=== PATIENT | female | born 1930 | race Caucasian/White ===

== ENCOUNTER 2016-10-24 11:58 | Inpatient (IN) | payer MEDICARE, OTHER ==
[~2016-10-24] VITALS: Ht 152.4 cm; Wt 45.4 kg
[2016-10-24] MEDS ORDERED: Solu-MEDROL 125mg Inj IVP ONE (12:00)
[2016-10-24] MEDS ORDERED: Terbutaline 1mg/ml Inj SUBQ ONE (12:00)
[2016-10-24] MEDS ORDERED: Azithromycin 500 MG in NS 275 ML IV ONE (12:00)
[2016-10-24] MEDS ORDERED: Ipratropium 0.02% Inh Soln 2.5ml UD ONE (12:01)
[2016-10-24] MEDS ORDERED: Albuterol ud Inhalation ONE (12:01)
--- NOTE | 2016-10-24 12:02 | Emergency Room Report ---
History of Present Illness General Chief Complaint: Dyspnea/Respdistress Source: Patient, Medical Record, EMS Present Illness HPI 86 YOF BIBEMS from convalescent home for "SOB for 2 weeks." Denies fever/chills , cough. Patient very hard of hearing, difficult for her to answer HPI even when we raise our voices - hearing aid in left ear. Patient endorses "smoking 50 years ago." Not sure if she has COPD/asthma or CHF. Review of charts show an order for Ventolin PRN. Has known breast cancer and OA but SNF paperwork missing "medical problems 1-6." Allergies: Uncoded Allergies: ERYTHROMYCIN (Allergy, Unknown, 10/24/16) Patient History Past Medical History: old chart reviewed, unable to obtain Past Surgical History: unable to obtain Social History: Denies: alcohol use, drug use, smoking Last Menstrual Period: na Now: No Immunizations: UTD Reviewed Nursing Documentation: PMH: Agreed, PSxH: Agreed Review of Systems All Other Systems: negative except mentioned in HPI Physical Exam Vital Signs Date Time Temp Pulse Resp B/P Pulse Ox O2 Delivery O2 Flow Rate FiO2 10/24/16 11:49 97.2 102 32 164/115 90 Room Air Sp02 EP Interpretation: reviewed, normal General Appearance: normal inspection, well appearing, no apparent distress, alert, GCS 15, non-toxic, mild distress Head: normocephalic, atraumatic Eyes: bilateral eye EOMI, bilateral eye PERRL ENT: normal ENT inspection, hearing grossly normal, normal pharynx, no angioedema, normal voice Neck: normal inspection, full range of motion, supple, no meningismus, no bony tend Respiratory: normal inspection, lungs clear, normal breath sounds, no rhonchi, no respiratory distress, no retraction, no accessory muscle use, wheezing Cardiovascular #1: regular rate, rhythm, no edema Gastrointestinal: normal inspection, normal bowel sounds, non tender, soft, no guarding, no hernia Genitourinary: no CVA tenderness Musculoskeletal: normal inspection, back normal, normal range of motion, Angle' s Sign negative Neurologic: normal inspection, alert, oriented x3, responsive, ophthalmic pathologist III-XII nml as tested, motor strength/tone normal, speech normal Psychiatric: normal inspection, judgement/insight normal, mood/affect normal Skin: normal inspection, normal color, no rash Lymphatic: normal inspection Procedures Critical Care Time Critical Care Time CC time of 40 minutes for this 86YOF who p/w acute SOB. DDx includes COPD exacerbation, ACS, PNA, acute on chronic CKD PMhx includes COPD exacerbation, chronic CKD on HD, HIV on HAART, Hepatitis Presents acute SOB warm, c/o intermittent 2 days of progressive SOB Patient immediately placed on chicken handler with rhytm strip and STAT EKG was obtained which showed no acute ischemia VS were stable. No hypoxia. Afebrile. No SIRS. Initial management indicated: CBC, CMP, troponin, BNP, CXR, nebs, steroids, empiric Abx Highly suspected: COPD exacerbation, +/- PNA Possible interventions - BIPAP, additional Abx. CC time included frequent re-exams, interpretation of labs, imaging, adjustment of Abx Critical care time of 40 minutes does not include reportable procedures. Medical Decision Making Medicare Attestation I Thelma Martinez MD hereby attest that the medical record entry for date of service, 08/25/16 accurately reflects signatures/notations that I made in my capacity as MD when I treated/diagnosed the above listed Medicare beneficiary. I attest that this information is true, accurate and complete to the best of my knowledge. I understand that any falsification, omission, or concealment of material fact may subject me to administrative, civil, or criminal liability. This patient warrants hospital admission for extreme of age and has a condition that cannot be treated as outpatient. Diagnostic Impression: Primary Impression: COPD exacerbation ER Course Labs: No leuks. H&H stable. CMP delayed by Lab. CXR: No PNA, pulm congestion, PTX. A: Feels much better s/p nebs, steroids, IV Mg, IV azithro Endorsed to Dr Alvarez for tele admission at 1:33pm. EKG Diagnostic Results Rate: tachycardiac Rhythm: NSR ST Segments: no acute changes ASA given to the pt in ED: No Rhythm Strip Diag. Results EP Interpretation: yes Rate: 104 Rhythm: NSR, no PVC's, no ectopy Chest X-Ray Diagnostic Results EP Interpretation: Yes Findings: no consolidation, no effusion, no pneumothorax, no acute cardiopulmonary disease Number of Views: 1 Last Vital Signs Date Time Temp Pulse Resp B/P Pulse Ox O2 Delivery O2 Flow Rate FiO2 10/24/16 11:49 97.2 102 32 164/115 90 Room Air Status: improved Disposition: ADMITTED INPATIENT Condition: Critical THELMA MARTINEZ M.D. Oct 24, 2016 12:02
[2016-10-24] MEDS: Albuterol ud Inhalation HHN SCH ×4 (12:03→18:56)
[2016-10-24] MEDS: Ipratropium 0.02% Inh Soln 2.5ml UD HHN SCH ×3 (12:03→12:58)
[2016-10-24 12:07] VITALS: BP 149/90
[2016-10-24] MEDS ORDERED: Azithromycin Inj IV ONE (12:12)
[2016-10-24 12:24] LABS: BASOPHILS % (AUTO) 0.6 % (0.0-2.0); EOSINOPHILS % (AUTO) 1.1 % (0.0-3.0); LYMPHOCYTES % (AUTO) 33.7 % (20.0-45.0); MEAN CORPUSCULAR HEMOGLOBIN 31.9 PG (27.0-31.0); MEAN CORPUSCULAR HGB CONC 32.7 G/DL (32.0-36.0); MEAN CORPUSCULAR VOLUME 98 FL (80-99); MEAN PLATELET VOLUME 8.4 FL (6.5-10.1); MONOCYTES % (AUTO) 11.4 % (1.0-10.0); NEUTROPHILS % (AUTO) 53.3 % (45.0-75.0); PLATELET COUNT 160 K/UL (150-450); RED BLOOD COUNT 4.74 M/UL (4.20-5.40); RED CELL DISTRIBUTION WIDTH 11.6 % (11.6-14.8); WHITE BLOOD COUNT 6.8 K/UL (4.8-10.8)
[2016-10-24 13:10] VITALS: BP 102/53
[2016-10-24] MEDS ORDERED: TYLENOL EXTRA500 MG ORAL (13:27)
[2016-10-24] MEDS ORDERED: GUAIFENESI100 MG/5 M ORAL (13:27)
[2016-10-24] MEDS ORDERED: SIMVASTATIN20 MG ORAL (13:27)
[2016-10-24] MEDS ORDERED: MAXZIDE 37.5 M1 EAC1 PO (13:27)
[2016-10-24] MEDS ORDERED: VENTOLIN HFA18 GM INH (13:27)
[2016-10-24] MEDS ORDERED: METOPROLOL TART25 MG ORAL (13:27)
[2016-10-24] MEDS ORDERED: ANASTROZOLE1 MG PO (13:27)
[2016-10-24] MEDS ORDERED: ZANTAC150 MG ORAL (13:27)
[2016-10-24] MEDS ORDERED: Promethazine/Codeine 5ml UD ORAL ONE (13:45)
[2016-10-24 13:50] LABS: ALANINE AMINOTRANSFERASE 12 U/L (3-33); ALBUMIN/GLOBULIN RATIO 1.7 (1.0-2.7); ANION GAP 18 (5-15); ASPARTATE AMINO TRANSFERASE 23 U/L (5-40); CALCIUM 10.3 mg/dL (8.6-10.2); CARBON DIOXIDE 26 mEQ/L (20-30); CHLORIDE 98 mEQ/L (98-107); CREATININE 1.1 mg/dL (0.5-0.9); HEMOLYSIS 0; POTASSIUM 3.7 mEQ/L (3.4-4.9); SODIUM 142 mEQ/L (135-145); TOTAL PROTEIN 7.4 g/dL (6.6-8.7); TROPONIN I < 0.30 ng/mL (<=0.30)
[2016-10-24 14:01] LABS: CKMB 3.5 ng/mL (< 3.8)
[2016-10-24] MEDS ORDERED: Albuterol ud Inhalation HHN PRN (15:45)
[2016-10-24 16:00] VITALS: BP 113/66
--- NOTE | 2016-10-24 18:35 | Consultation ---
History of Present Illness General Date patient seen: Oct 24, 2016 Time patient seen: 17:30 Chief Complaint: Dyspnea/Respdistress Referring physician: Mayra GONZALEZ Reason for Consultation: COPD exacerbation Present Illness HPI 86 y/old female brought from convalescent home for "SOB for 2 weeks." SOB was getting progressively worse, Denies fever/chills, admits to intermittent dry cough. Hx of smoking Has known breast cancer and OA but SNF paperwork missing "medical problems 1-6. " Workup in ED revealed: CXR -no acute cardiopulmonary disease afebrile, no leucocytosis troponin negative; ECG no ST changes admitted fro COPD exacerbation PMH significant for COPD, HTN, hyperlipidemia Allergies: Coded Allergies: ERYTHROMYCIN BASE (Verified Allergy, Unknown, 10/24/16) COPIED FROM UNCODED SECTION Medication History Scheduled Albuterol Sulfate (Ventolin Hfa), 2 PUFFS INH EVERY 4 HOURS, (Reported) Anastrozole* (Arimidex*), 1 MG PO DAILY, (Reported) Metoprolol Tartrate* (Metoprolol Tartrate*), 12.5 MG ORAL EVERY 12 HOURS, ( Reported) Ranitidine Hcl* (Zantac*), 150 MG ORAL TWICE A DAY, (Reported) Simvastatin (Zocor), 20 MG ORAL BEDTIME, (Reported) Triamterene/Hydrochlorothiazid (Maxzide 37.5 Mg-25 Mg Tablet), 0.5 EACH PO DAILY , (Reported) Scheduled PRN Acetaminophen* (Tylenol Extra Strength*), 500 MG ORAL Q8H PRN for Prn Headache/ Temp > 101, (Reported) Guaifenesin* (Guaifenesin), 5 ML ORAL Q4H PRN for For Cough, (Reported) Patient History Limited by: age, medical condition History Provided By: Patient, Medical Record Healthcare decision maker Resuscitation status Advanced Directive on File Review of Systems ROS Narrative unable to obtain, guillermina leung is a poor historian and very hoff rd of hearing Physical Exam General Appearance: no apparent distress, alert, other - elderly frail female Lines, tubes and drains: peripheral HEENT: normocephalic, atraumatic, anicteric, mucous membranes moist, other - hard of hearing Neck: non-tender, supple Respiratory/Chest: chest wall non-tender, no accessory muscle use, decreased breath sounds, expiratory wheezing - few scattered expiratory wheezes Cardiovascular/Chest: normal peripheral pulses, regular rhythm, tachycardia Abdomen: normal bowel sounds, non tender, soft Extremities: normal range of motion, non-tender, no calf tenderness, normal capillary refill Skin Exam: warm/dry Neurologic: abnormal gait, alert, responsive Musculoskeletal: atrophy - BLE Last 24 Hour Vital Signs Date Time Temp Pulse Resp B/P Pulse Ox O2 Delivery O2 Flow Rate FiO2 10/24/16 16:00 97.6 118 21 113/66 94 Nasal Cannula 2.0 10/24/16 16:00 110 10/24/16 13:34 97.2 109 25 102/53 100 Simple Mask 6.0 28 10/24/16 13:10 97.2 109 25 102/53 100 Simple Mask 6.0 10/24/16 13:08 105 18 99 Nasal Cannula 2.0 28 10/24/16 12:48 100 22 97 Nasal Cannula 2.0 28 10/24/16 12:13 93 18 99 Nasal Cannula 2.0 28 10/24/16 12:08 105 32 Nasal Cannula 2.0 10/24/16 12:07 97.2 105 32 149/90 99 Nasal Cannula 2.0 10/24/16 12:03 81 16 100 Nasal Cannula 2.0 28 10/24/16 12:03 81 16 Nasal Cannula 2.0 28 10/24/16 11:49 97.2 102 32 164/115 90 Room Air Laboratory Tests Test 10/24/16 12:04 White Blood Count 6.8 K/UL (4.8-10.8) Red Blood Count 4.74 M/UL (4.20-5.40) Hemoglobin 15.1 G/DL (12.0-16.0) Hematocrit 46.2 % (37.0-47.0) Mean Corpuscular Volume 98 FL (80-99) Mean Corpuscular Hemoglobin 31.9 PG (27.0-31.0) H Mean Corpuscular Hemoglobin Concent 32.7 G/DL (32.0-36.0) Red Cell Distribution Width 11.6 % (11.6-14.8) Platelet Count 160 K/UL (150-450) Mean Platelet Volume 8.4 FL (6.5-10.1) Neutrophils (%) (Auto) 53.3 % (45.0-75.0) Lymphocytes (%) (Auto) 33.7 % (20.0-45.0) Monocytes (%) (Auto) 11.4 % (1.0-10.0) H Eosinophils (%) (Auto) 1.1 % (0.0-3.0) Basophils (%) (Auto) 0.6 % (0.0-2.0) Sodium Level 142 mEQ/L (135-145) Potassium Level 3.7 mEQ/L (3.4-4.9) Chloride Level 98 mEQ/L (98-107) Carbon Dioxide Level 26 mEQ/L (20-30) Anion Gap 18 (5-15) H Blood Urea Nitrogen 18 mg/dL (7-23) Creatinine 1.1 mg/dL (0.5-0.9) H Estimat Glomerular Filtration Rate mL/min (>60) Glucose Level 115 mg/dL (74-106) H Calcium Level 10.3 mg/dL (8.6-10.2) H Total Bilirubin 0.4 mg/dL (0.0-1.2) Aspartate Amino Transf (AST/SGOT) 23 U/L (5-40) Alanine Aminotransferase (ALT/SGPT) 12 U/L (3-33) Alkaline Phosphatase 107 U/L (35-104) H Total Creatine Kinase 54 U/L (26-140) Creatine Kinase MB 3.5 ng/mL (< 3.8) Creatine Kinase MB Relative Index 6.4 Troponin I < 0.30 ng/mL (<=0.30) Pro-B-Type Natriuretic Peptide 329 pg/mL (0-450) Total Protein 7.4 g/dL (6.6-8.7) Albumin 4.7 g/dL (3.5-5.2) Globulin 2.7 g/dL Albumin/Globulin Ratio 1.7 (1.0-2.7) Height (Feet): 5 Height (Inches): 0.00 Weight (Pounds): 100 Medications Current Medications Medications (Trade) Dose Ordered Sig/Oanh Route PRN Reason Start Time Stop Time Status Last Admin Dose Admin Albuterol Sulfate (Proventil) 2.5 mg Q6H PRN HHN Shortness of Breath 10/24/16 15:45 10/29/16 15:44 Albuterol Sulfate (Proventil) 2.5 mg Q6HRT HHN 2/3/17 19:00 10/27/16 13:01 Anastrozole (Arimidex) 1 mg DAILY ORAL 10/25/16 09:00 11/24/16 08:59 Atorvastatin Calcium (Lipitor) 10 mg BEDTIME ORAL 10/24/16 21:00 11/23/16 20:59 Methylprednisolone Sodium Succinate (Solu-MEDROL) 125 mg DAILY ONCE IVP 10/25/16 09:00 10/25/16 09:01 Metoprolol Tartrate (Lopressor) 12.5 mg Q12HR ORAL 10/24/16 21:00 11/23/16 20:59 Ranitidine HCl (Zantac) 150 mg QHS ORAL 10/24/16 21:00 11/23/16 20:59 Triamterene/HCTZ (Dyazide) 1 tab DAILY ORAL 10/25/16 09:00 11/24/16 08:59 Assessment/Plan Assessment/Plan ASSESSMENT SOB acute COPD exacerbation Hx of smoking HTN hearing impaired hx of breast CA PLAN OF CARE tele overnight O2 HHN prn IV steroids and taper as permitted empiric abx sputum cx antitussive prn BP management with current regimen Venous Duplex BLE fup with CXR initial CXR no acute cardiopulmonary disease swallow eval DVT, GI prophylaxis bowel regimen continue Arimidex PT/OT fall precautions case discussed and evaluated by supervising physician Tavo Corcoran),Meera NAGY Oct 24, 2016 18:35
[2016-10-24] MEDS ORDERED: DuoNeb 0.5-3(2.5)mg/3ml neb HHN PRN (18:45)
[2016-10-24] MEDS ORDERED: Promethazine/Codeine 5ml UD ORAL PRN (18:45)
[2016-10-24] MEDS ORDERED: Levofloxacin 500mg tab ORAL ONE (19:00)
[2016-10-24] MEDS ORDERED: Solu-MEDROL 125mg Inj IV SCH (19:00)
[2016-10-24] MEDS: Solu-MEDROL 40mg Inj IVP SCH (20:31)
[2016-10-24] MEDS: Metoprolol Tartrate 12.5mg TAB ORAL SCH (20:36)
--- NOTE | 2016-10-25 01:07 | History and Physical Report ---
DATE OF ADMISSION: 10/24/2016 CHIEF COMPLAINT: Shortness of breath. HISTORY OF PRESENT ILLNESS: This is an 86-year-old white female who lives in the assisted living, was brought in by paramedics for complaint of worsening shortness of breath in the past few days. The patient recently was hospitalized at [facility] for viral syndrome and H flu and was discharged from the hospital about two or three weeks ago. The patient improved originally, but in the last one week, she started having shortness of breath again and she was [facility] and was started on oral prednisone, however, she did not respond well and assisted living transferred the patient to the hospital at [place]. PAST MEDICAL HISTORY: Includes history of hyperlipidemia, COPD, breast cancer, and history of osteoarthritis. PAST SURGICAL HISTORY: Unknown. ALLERGIES: Erythromycin allergy. SOCIAL HISTORY: Currently, she denies any smoking, quit many years ago after 50 years of smoking. No history of alcohol use or drug use. REVIEW OF SYSTEMS: Negative except for history of present illness. PHYSICAL EXAMINATION: VITAL SIGNS: Temperature 97.2 degrees, pulse 102, respirations 32, blood pressure 164/115, and pulse oximetry 90% on room air. GENERAL: No acute distress. HEENT: Normocephalic and normochromic. Extraocular muscles intact. Throat is clear. NECK: Supple. No lymphadenopathy. LUNGS: Positive wheezing bilaterally. No rhonchi or rales. CARDIOVASCULAR: Regular rate and rhythm. No murmur. No gallop. ABDOMEN: Soft, nontender, and nondistended. Positive bowel sounds. EXTREMITIES: No edema, cyanosis, or clubbing. SKIN: No rash. LABORATORY AND DIAGNOSTIC DATA: Includes sodium 142, potassium 3.7, chloride 98, bicarbonate 26, BUN 18, creatinine 1.1, and glucose 115. Calcium is 10.3. AST 23, ALT 12, and alkaline phosphatase 107. Troponin is less than 0.3. Albumin 4.7 and globulin 2.7. WBC 6.8, hemoglobin 15.1, hematocrit 46.2, platelet count 116,000; neutrophils 53, lymphocytes 33, and monocytes 11.4. Chest x-ray showed no acute changes. EKG shows sinus tachycardia. IMPRESSION: 1. This is an 86-year-old white female, who was admitted for chronic obstructive pulmonary disease exacerbation. The patient will be started on intravenous Solu-Medrol and a breathing treatment of albuterol and Atrovent and levaquin IV Antibiotic. Pulmonology, Dr. Melendez will be consulted as well. 2. Hyperlipidemia. We will continue the same home medication. 3. History of breast cancer. Continue home medications. 4. Gastroesophageal reflux disease. We will continue Zantac as home medication. The patient will be admitted for minimum of two-night stay for chronic obstructive pulmonary disease exacerbation and treatment. Kacie Nunez M.D. DR: LIBRADO JOB#: [id number] CC: VETO
[2016-10-25] MEDS: Albuterol ud Inhalation HHN SCH ×4 (01:25→19:00)
[2016-10-25] MEDS: Solu-MEDROL 40mg Inj IVP SCH ×2 (06:01→20:35)
[2016-10-25] MEDS ORDERED: traMADol 50mg tab ORAL PRN ×2 (07:30→16:00)
[2016-10-25] MEDS ORDERED: LORazepam 1mg tab ORAL PRN ×2 (07:30→21:00)
[2016-10-25 08:00] VITALS: BP 128/83
[2016-10-25 08:10] LABS: MEAN CORPUSCULAR HEMOGLOBIN 32.7 PG (27.0-31.0); MEAN CORPUSCULAR HGB CONC 33.8 G/DL (32.0-36.0); MEAN CORPUSCULAR VOLUME 97 FL (80-99); MEAN PLATELET VOLUME 7.9 FL (6.5-10.1); PLATELET COUNT 157 K/UL (150-450); RED BLOOD COUNT 4.15 M/UL (4.20-5.40); RED CELL DISTRIBUTION WIDTH 11.6 % (11.6-14.8)
[2016-10-25 08:25] LABS: ANION GAP 17 (5-15); CALCIUM 10.3 mg/dL (8.6-10.2); CARBON DIOXIDE 26 mEQ/L (20-30); CHLORIDE 99 mEQ/L (98-107); CREATININE 1.1 mg/dL (0.5-0.9); HEMOLYSIS 2; POTASSIUM 3.8 mEQ/L (3.4-4.9); SODIUM 142 mEQ/L (135-145)
[2016-10-25] MEDS ORDERED: Dyazide 18.75/12.5mg tab ORAL SCH (09:00)
[2016-10-25] MEDS ORDERED: Solu-MEDROL 125mg Inj IVP ONE (09:00)
[2016-10-25] MEDS ORDERED: Anastrazole 1mg tab ORAL SCH (09:00)
[2016-10-25] MEDS: Metoprolol Tartrate 12.5mg TAB ORAL SCH ×2 (09:08→20:35)
[2016-10-25] MEDS ORDERED: RANITIDINE HCL150 M2 PO (09:15)
[2016-10-25] MEDS ORDERED: Milk of Magnesia 30ml Ud ORAL PRN ×2 (09:15→16:00)
[2016-10-25 10:30] LABS: BAND NEUTROPHILS % (MANUAL) 4 % (0-8); BASOPHILS % (MANUAL) 0 % (0-2); EOSINOPHILS % (MANUAL) 0 % (0-3); LYMPHOCYTES % (MANUAL) 13 % (20-45); NEUTROPHILS % (MANUAL) 83 % (45-75); PLATELET ESTIMATE ADEQUATE; TOTAL CELLS COUNTED 100
[2016-10-25 10:31] LABS: MACROCYTES 1+; PLATELET MORPHOLOGY NORMAL
[2016-10-25 12:00] VITALS: BP 146/89
--- NOTE | 2016-10-25 12:03 | General Progress Note ---
Assessment/Plan Status: stable Assessment/Plan 1. COPD exacerbation - cont IV solumedrol and IV empiric abx. improving. cont breathing txt as well. 2. Hyperlipidemia. cont lipitor 10 mg one po qhs. 3. History of breast cancer. Continue Arimidex 1 mg daily. 4. Gastroesophageal reflux disease. on zantac 150 mg daily. 5. HTN - cont lopressor 12.5 mg q 12 hrs and dyazide one daily. Subjective Date patient seen: Oct 25, 2016 Time patient seen: 11:00 Constitutional: Reports: no symptoms HEENT: Reports: no symptoms Cardiovascular: Reports: no symptoms Respiratory: Reports: shortness of breath, wheezing Gastrointestinal/Abdominal: Reports: no symptoms Genitourinary: Reports: no symptoms Neurologic/Psychiatric: Reports: no symptoms Endocrine: Reports: no symptoms Hematologic/Lymphatic: Reports: no symptoms Allergies: Coded Allergies: ERYTHROMYCIN BASE (Verified Allergy, Unknown, 10/24/16) COPIED FROM UNCODED SECTION Subjective She still has SOB but it is better today. afebrile. no chest pain or nausea or vomiting. Objective Last 24 Hour Vital Signs Date Time Temp Pulse Resp B/P Pulse Ox O2 Delivery O2 Flow Rate FiO2 10/25/16 09:08 96 128/83 10/25/16 08:00 96.5 95 19 128/83 95 Room Air 96 10/25/16 07:15 109 18 97 Nasal Cannula 2.0 28 10/25/16 07:15 109 18 Nasal Cannula 2.0 10/25/16 07:15 109 18 10/25/16 04:00 93 10/25/16 01:26 109 18 99 Nasal Cannula 2.0 28 10/25/16 01:25 111 18 96 Nasal Cannula 2.0 28 10/25/16 00:00 101 10/24/16 20:36 121 117/67 10/24/16 20:00 112 10/24/16 19:02 99 18 99 Nasal Cannula 2.0 28 10/24/16 19:00 101 18 98 Nasal Cannula 2.0 28 10/24/16 18:58 110 18 Nasal Cannula 2.0 10/24/16 16:00 97.6 118 21 113/66 94 Nasal Cannula 2.0 10/24/16 16:00 110 10/24/16 13:34 97.2 109 25 102/53 100 Simple Mask 6.0 28 10/24/16 13:10 97.2 109 25 102/53 100 Simple Mask 6.0 10/24/16 13:08 105 18 99 Nasal Cannula 2.0 28 10/24/16 12:48 100 22 97 Nasal Cannula 2.0 28 10/24/16 12:13 93 18 99 Nasal Cannula 2.0 28 10/24/16 12:08 105 32 Nasal Cannula 2.0 10/24/16 12:07 97.2 105 32 149/90 99 Nasal Cannula 2.0 10/24/16 12:03 81 16 100 Nasal Cannula 2.0 28 10/24/16 12:03 81 16 Nasal Cannula 2.0 28 Intake and Output 10/24/16 10/25/16 19:00 07:00 Intake Total 0 ml 420 ml Balance 0 ml 420 ml Intake Oral 0 ml 420 ml # Voids 4 Laboratory Tests 10/24/16 12:04: White Blood Count 6.8, Red Blood Count 4.74, Hemoglobin 15.1, Hematocrit 46.2, Mean Corpuscular Volume 98, Mean Corpuscular Hemoglobin 31.9H, Mean Corpuscular Hemoglobin Concent 32.7, Red Cell Distribution Width 11.6, Platelet Count 160, Mean Platelet Volume 8.4, Neutrophils (%) (Auto) 53.3, Lymphocytes (%) (Auto) 33.7, Monocytes (%) (Auto) 11.4H, Eosinophils (%) (Auto) 1.1, Basophils (%) ( Auto) 0.6, Sodium Level 142, Potassium Level 3.7, Chloride Level 98, Carbon Dioxide Level 26, Anion Gap 18H, Blood Urea Nitrogen 18, Creatinine 1.1H, Estimat Glomerular Filtration Rate , Glucose Level 115H, Calcium Level 10.3H, Total Bilirubin 0.4, Aspartate Amino Transf (AST/SGOT) 23, Alanine Aminotransferase (ALT/SGPT) 12, Alkaline Phosphatase 107H, Total Creatine Kinase 54, Creatine Kinase MB 3.5, Creatine Kinase MB Relative Index 6.4, Troponin I < 0.30, Pro-B-Type Natriuretic Peptide 329, Total Protein 7.4, Albumin 4.7, Globulin 2.7, Albumin/Globulin Ratio 1.7 10/25/16 07:45: White Blood Count 14.0#H, Red Blood Count 4.15L, Hemoglobin 13.6, Hematocrit 40.1, Mean Corpuscular Volume 97, Mean Corpuscular Hemoglobin 32.7H, Mean Corpuscular Hemoglobin Concent 33.8, Red Cell Distribution Width 11.6, Platelet Count 157, Mean Platelet Volume 7.9, Neutrophils (%) (Auto) , Lymphocytes (%) ( Auto) , Monocytes (%) (Auto) , Eosinophils (%) (Auto) , Basophils (%) (Auto) , Sodium Level 142, Potassium Level 3.8, Chloride Level 99, Carbon Dioxide Level 26, Anion Gap 17H, Blood Urea Nitrogen 19, Creatinine 1.1H, Estimat Glomerular Filtration Rate , Glucose Level 143H, Calcium Level 10.3H, Differential Total Cells Counted 100, Neutrophils % (Manual) 83H, Lymphocytes % (Manual) 13L, Monocytes % (Manual) 0L, Eosinophils % (Manual) 0, Basophils % (Manual) 0, Band Neutrophils 4, Platelet Estimate Adequate, Platelet Morphology Normal, Macrocytosis 1+ Height (Feet): 5 Height (Inches): 0.00 Weight (Pounds): 100 General Appearance: no apparent distress, alert EENT: normal ENT inspection Neck: non-tender, normal alignment, supple Cardiovascular: normal rate, regular rhythm Respiratory/Chest: normal breath sounds, expiratory wheezing Abdomen: normal bowel sounds, non tender, soft, no mass Extremities: normal range of motion, non-tender Edema: no edema noted Arm (L), no edema noted Arm (R), no edema noted Leg (L), no edema noted Leg (R), no edema noted Pedal (L), no edema noted Pedal (R), no edema noted Generalized Neurologic: no motor/sensory deficits, alert, responsive Lymphatic: normal anterior cervical (L), normal anterior cervical (R), normal axillary (L), normal axillary (R), normal inguinal (L), normal inguinal (R), normal other, normal posterior cervical (L), normal posterior cervical (R), normal submandibular (L), normal submandibular (R), normal supraclavicular (L), normal supraclavicular (R) MARIA R CALZADA Oct 25, 2016 12:03
--- NOTE | 2016-10-25 12:37 | Pulmonology Progress Note ---
Assessment/Plan Assessment/Plan ASSESSMENT SOB acute COPD exacerbation Hx of smoking HTN hearing impaired hx of breast CA GERD PLAN OF CARE O2 HHN prn taper IV steroids empiric abx sputum cx antitussive prn BP management with current regimen Venous Duplex BLE fup with CXR initial CXR no acute cardiopulmonary disease swallow eval DVT, GI prophylaxis bowel regimen continue Arimidex PT/OT fall precautions add GI prophylaxis and Mylanta prn case discussed and evaluated by supervising physician Subjective Allergies: Coded Allergies: ERYTHROMYCIN BASE (Verified Allergy, Unknown, 10/24/16) COPIED FROM UNCODED SECTION Subjective intermittent cough, dry, no hemoptyses no fever, leukocytosis, clinically with some improvement, no wheezing, no congestion, no chest pain, no SOB at rest Objective Last 24 Hour Vital Signs Date Time Temp Pulse Resp B/P Pulse Ox O2 Delivery O2 Flow Rate FiO2 10/25/16 09:08 96 128/83 10/25/16 08:00 96.5 95 19 128/83 95 Room Air 96 10/25/16 07:15 109 18 97 Nasal Cannula 2.0 28 10/25/16 07:15 109 18 Nasal Cannula 2.0 10/25/16 07:15 109 18 10/25/16 04:00 93 10/25/16 01:26 109 18 99 Nasal Cannula 2.0 28 10/25/16 01:25 111 18 96 Nasal Cannula 2.0 28 10/25/16 00:00 101 10/24/16 20:36 121 117/67 10/24/16 20:00 112 10/24/16 19:02 99 18 99 Nasal Cannula 2.0 28 10/24/16 19:00 101 18 98 Nasal Cannula 2.0 28 10/24/16 18:58 110 18 Nasal Cannula 2.0 10/24/16 16:00 97.6 118 21 113/66 94 Nasal Cannula 2.0 10/24/16 16:00 110 10/24/16 13:34 97.2 109 25 102/53 100 Simple Mask 6.0 28 10/24/16 13:10 97.2 109 25 102/53 100 Simple Mask 6.0 10/24/16 13:08 105 18 99 Nasal Cannula 2.0 28 10/24/16 12:48 100 22 97 Nasal Cannula 2.0 28 Intake and Output 10/24/16 10/25/16 19:00 07:00 Intake Total 0 ml 420 ml Balance 0 ml 420 ml Intake Oral 0 ml 420 ml # Voids 4 Objective General Appearance: no apparent distress, alert, lderly frail female Lines, tubes and drains: peripheral HEENT: normocephalic, atraumatic, anicteric, mucous membranes moist, hard of hearing R ear> L ear Neck: non-tender, supple Respiratory/Chest: chest wall non-tender, no accessory muscle use, decreased breath sounds, few occasional expiratory wheezes Cardiovascular/Chest: normal peripheral pulses, regular rhythm, tachycardia Abdomen: normal bowel sounds, non tender, soft Extremities: normal range of motion, non-tender, no calf tenderness, normal capillary refill Skin Exam: warm/dry Neurologic: abnormal gait, alert, responsive Musculoskeletal: atrophy - BLE Laboratory Tests 10/25/16 07:45: White Blood Count 14.0#H, Red Blood Count 4.15L, Hemoglobin 13.6, Hematocrit 40.1, Mean Corpuscular Volume 97, Mean Corpuscular Hemoglobin 32.7H, Mean Corpuscular Hemoglobin Concent 33.8, Red Cell Distribution Width 11.6, Platelet Count 157, Mean Platelet Volume 7.9, Neutrophils (%) (Auto) , Lymphocytes (%) ( Auto) , Monocytes (%) (Auto) , Eosinophils (%) (Auto) , Basophils (%) (Auto) , Differential Total Cells Counted 100, Neutrophils % (Manual) 83H, Lymphocytes % (Manual) 13L, Monocytes % (Manual) 0L, Eosinophils % (Manual) 0, Basophils % ( Manual) 0, Band Neutrophils 4, Platelet Estimate Adequate, Platelet Morphology Normal, Macrocytosis 1+, Sodium Level 142, Potassium Level 3.8, Chloride Level 99, Carbon Dioxide Level 26, Anion Gap 17H, Blood Urea Nitrogen 19, Creatinine 1.1H, Estimat Glomerular Filtration Rate , Glucose Level 143H, Calcium Level 10.3H Current Medications Medications (Trade) Dose Ordered Sig/Oanh Route PRN Reason Start Time Stop Time Status Last Admin Dose Admin Albuterol Sulfate (Proventil) 2.5 mg Q6HRT HHN 10/24/16 19:00 10/27/16 13:01 10/25/16 01:25 Albuterol/ Ipratropium (DuoNeb 0.5-3(2.5)mg/3ml) 3 ml Q4H PRN HHN Shortness of Breath 10/24/16 18:45 10/29/16 18:44 Anastrozole (Arimidex) 1 mg DAILY ORAL 10/25/16 09:00 11/24/16 08:59 10/25/16 09:08 Atorvastatin Calcium (Lipitor) 10 mg BEDTIME ORAL 10/24/16 21:00 11/23/16 20:59 10/24/16 20:31 Levofloxacin (Levaquin) 250 mg Q24H ORAL 10/25/16 18:00 11/01/16 17:59 Lorazepam (Ativan) 1 mg QHS PRN ORAL For Anxiety 10/25/16 07:30 11/01/16 07:29 Magnesium Hydroxide (Mom) 30 ml DAILYPRN PRN ORAL INDIGESTION 10/25/16 09:15 11/24/16 09:14 Methylprednisolone Sodium Succinate (Solu-MEDROL) 40 mg Q8HR IVP 10/24/16 19:00 11/23/16 18:59 10/25/16 06:01 Metoprolol Tartrate (Lopressor) 12.5 mg Q12HR ORAL 10/24/16 21:00 11/23/16 20:59 10/25/16 09:08 Promethazine HCl/ Codeine (Phenergan with Codeine) 5 ml Q6H PRN ORAL For Cough 10/24/16 18:45 11/23/16 18:44 Ranitidine HCl (Zantac) 150 mg ACBREAKFAST ORAL 10/25/16 10:00 11/24/16 09:59 10/25/16 09:29 Tramadol HCl (Ultram) 50 mg Q8H PRN ORAL For Pain 10/25/16 07:30 11/01/16 07:29 Triamterene/HCTZ (Dyazide) 1 tab DAILY ORAL 10/25/16 09:00 11/24/16 08:59 10/25/16 09:08 Meera Vo NP (Vanchtein) Oct 25, 2016 12:37
[2016-10-25 15:53] VITALS: BP 132/95
[2016-10-25 20:00] VITALS: BP 140/79
[2016-10-25] MEDS ORDERED: Solu-MEDROL 40mg Inj IVP SCH (21:00)
[2016-10-26] VITALS: BP 146/95
[2016-10-26] MEDS: Albuterol ud Inhalation HHN SCH ×4 (00:45→18:57)
[2016-10-26 04:00] VITALS: BP 143/89
[2016-10-26] MEDS: DuoNeb 0.5-3(2.5)mg/3ml neb HHN PRN (04:11)
[2016-10-26 07:18] LABS: MEAN CORPUSCULAR HEMOGLOBIN 31.9 PG (27.0-31.0); MEAN CORPUSCULAR HGB CONC 32.7 G/DL (32.0-36.0); MEAN CORPUSCULAR VOLUME 98 FL (80-99); MEAN PLATELET VOLUME 8.1 FL (6.5-10.1); PLATELET COUNT 161 K/UL (150-450); RED BLOOD COUNT 4.57 M/UL (4.20-5.40); RED CELL DISTRIBUTION WIDTH 11.8 % (11.6-14.8); WHITE BLOOD COUNT 18.2 K/UL (4.8-10.8)
[2016-10-26 08:00] VITALS: BP 128/82
[2016-10-26 09:04] LABS: ANION GAP 19 (5-15); CALCIUM 9.8 mg/dL (8.6-10.2); CARBON DIOXIDE 25 mEQ/L (20-30); CHLORIDE 98 mEQ/L (98-107); CREATININE 1.2 mg/dL (0.5-0.9); HEMOLYSIS 7; POTASSIUM 3.9 mEQ/L (3.4-4.9); SODIUM 142 mEQ/L (135-145)
[2016-10-26] MEDS: Metoprolol Tartrate 12.5mg TAB ORAL SCH ×2 (09:16→20:48)
[2016-10-26] MEDS: Anastrazole 1mg tab ORAL SCH (09:16)
[2016-10-26] MEDS: Dyazide 18.75/12.5mg tab ORAL SCH (09:16)
[2016-10-26] MEDS: Solu-MEDROL 40mg Inj IVP SCH (09:17)
[2016-10-26 09:22] LABS: BAND NEUTROPHILS % (MANUAL) 0 % (0-8); BASOPHILS % (MANUAL) 0 % (0-2); EOSINOPHILS % (MANUAL) 0 % (0-3); LYMPHOCYTES % (MANUAL) 7 % (20-45); NEUTROPHILS % (MANUAL) 86 % (45-75); PLATELET ESTIMATE ADEQUATE; PLATELET MORPHOLOGY NORMAL; TOTAL CELLS COUNTED 100
[2016-10-26 11:52] VITALS: BP 139/81
--- NOTE | 2016-10-26 12:04 | Pulmonology Progress Note ---
Assessment/Plan Assessment/Plan ASSESSMENT SOB acute COPD exacerbation Hx of smoking HTN hearing impaired hx of breast CA GERD PLAN OF CARE O2 HHN prn taper IV steroids and after tomorrow change to po empiric abx sputum cx pending antitussive prn BP management with current regimen Venous Duplex BLE fup with CXR in am leukocytosis likely reactive 2 to steroids creat up to 1,2 likely 2 to steroids as well, tapering clinically with improvement, more awake alert, no signs of respiratory compromsie initial CXR no acute cardiopulmonary disease swallow eval DVT, GI prophylaxis bowel regimen continue Arimidex PT/OT fall precautions GI prophylaxis and Mylanta prn case discussed and evaluated by supervising physician Subjective Allergies: Coded Allergies: ERYTHROMYCIN BASE (Verified Allergy, Unknown, 10/24/16) COPIED FROM UNCODED SECTION Subjective leukocytosis today, no fever, creta with slight worsening - likely 2 to steroids no signs of respiratory distress on 2L O2 via NC, pulse ox stable less cough no SOB, no wheezing Objective Last 24 Hour Vital Signs Date Time Temp Pulse Resp B/P Pulse Ox O2 Delivery O2 Flow Rate FiO2 10/26/16 11:52 97.1 99 20 139/81 98 10/26/16 09:16 125 128/82 10/26/16 08:00 97.7 125 24 128/82 96 Nasal Cannula 2.0 10/26/16 06:48 102 20 97 Nasal Cannula 2.0 10/26/16 06:40 94 20 94 Nasal Cannula 2.0 10/26/16 06:40 94 20 Nasal Cannula 2.0 10/26/16 04:25 93 20 98 Nasal Cannula 3.0 10/26/16 04:18 91 20 97 Nasal Cannula 3.0 10/26/16 04:00 97.0 91 24 143/89 97 Room Air 10/26/16 00:45 Nasal Cannula 2.0 28 10/26/16 00:44 Nasal Cannula 2.0 10/26/16 00:00 97.7 84 20 146/95 96 Room Air 10/25/16 20:35 89 140/79 10/25/16 20:00 97.9 89 20 140/79 98 Room Air 10/25/16 19:00 108 22 Nasal Cannula 2.0 10/25/16 19:00 Nasal Cannula 2.0 10/25/16 19:00 Nasal Cannula 2.0 28 10/25/16 15:53 98.4 95 16 132/95 95 Nasal Cannula 95 10/25/16 13:16 28 10/25/16 13:16 102 18 95 Nasal Cannula 2.0 28 10/25/16 13:10 Nasal Cannula 2.0 28 Intake and Output 10/25/16 10/26/16 19:00 07:00 Intake Total 660 ml 360 ml Balance 660 ml 360 ml Intake Oral 660 ml 360 ml # Voids 5 Objective General Appearance: no apparent distress, alert, lderly frail female Lines, tubes and drains: peripheral HEENT: normocephalic, atraumatic, anicteric, mucous membranes moist, hard of hearing R ear> L ear Neck: non-tender, supple Respiratory/Chest: chest wall non-tender, no accessory muscle use, decreased breath sounds, few occasional expiratory wheezes Cardiovascular/Chest: normal peripheral pulses, regular rhythm, tachycardia Abdomen: normal bowel sounds, non tender, soft Extremities: normal range of motion, non-tender, no calf tenderness, normal capillary refill Skin Exam: warm/dry Neurologic: abnormal gait, alert, responsive Musculoskeletal: atrophy - BLE Microbiology Date/Time Source Procedure Growth Status 10/25/16 14:30 Sputum Expectorated Gram Stain - Final Resulted 10/25/16 14:30 Sputum Expectorated Sputum Culture Pending Resulted 10/24/16 13:18 Nasal Nares MRSA Culture - Final NO METHICILLIN RESISTANT STAPH AUREUS... Complete 10/24/16 13:18 Rectum VRE Culture - Final NO VANCOMYCIN RESISTANT ENTEROCOCCUS ... Complete Laboratory Tests 10/26/16 05:15: White Blood Count 18.2H, Red Blood Count 4.57, Hemoglobin 14.6, Hematocrit 44.6 , Mean Corpuscular Volume 98, Mean Corpuscular Hemoglobin 31.9H, Mean Corpuscular Hemoglobin Concent 32.7, Red Cell Distribution Width 11.8, Platelet Count 161, Mean Platelet Volume 8.1, Neutrophils (%) (Auto) , Lymphocytes (%) ( Auto) , Monocytes (%) (Auto) , Eosinophils (%) (Auto) , Basophils (%) (Auto) , Differential Total Cells Counted 100, Neutrophils % (Manual) 86H, Lymphocytes % (Manual) 7L, Monocytes % (Manual) 7, Eosinophils % (Manual) 0, Basophils % ( Manual) 0, Band Neutrophils 0, Platelet Estimate Adequate, Platelet Morphology Normal, Red Blood Cell Morphology Normal, Sodium Level 142, Potassium Level 3.9 , Chloride Level 98, Carbon Dioxide Level 25, Anion Gap 19H, Blood Urea Nitrogen 26H, Creatinine 1.2H, Estimat Glomerular Filtration Rate , Glucose Level 122H, Calcium Level 9.8 Current Medications Medications (Trade) Dose Ordered Sig/Oanh Route PRN Reason Start Time Stop Time Status Last Admin Dose Admin Albuterol Sulfate (Proventil) 2.5 mg Q6HRT HHN 10/25/16 19:00 10/27/16 19:01 10/26/16 08:21 Albuterol/ Ipratropium (DuoNeb 0.5-3(2.5)mg/3ml) 3 ml Q4H PRN HHN Shortness of Breath 10/25/16 16:00 10/30/16 15:59 10/26/16 04:11 Anastrozole (Arimidex) 1 mg DAILY ORAL 10/26/16 09:00 11/25/16 08:59 10/26/16 09:16 Atorvastatin Calcium (Lipitor) 10 mg BEDTIME ORAL 10/25/16 21:00 11/24/16 20:59 10/25/16 20:35 Levofloxacin (Levaquin) 250 mg Q24H ORAL 10/25/16 18:00 11/01/16 17:59 10/25/16 17:56 Lorazepam (Ativan) 1 mg QHS PRN ORAL For Anxiety 10/25/16 21:00 11/01/16 20:59 10/26/16 06:47 Magnesium Hydroxide (Mom) 30 ml DAILYPRN PRN ORAL INDIGESTION 10/25/16 16:00 11/24/16 15:59 Methylprednisolone Sodium Succinate (Solu-MEDROL) 40 mg EVERY 12 HOURS IVP 10/25/16 21:00 11/24/16 20:59 10/26/16 09:17 Metoprolol Tartrate (Lopressor) 12.5 mg Q12HR ORAL 10/25/16 21:00 11/24/16 20:59 10/26/16 09:16 Promethazine HCl/ Codeine (Phenergan with Codeine) 5 ml Q6H PRN ORAL For Cough 10/25/16 16:00 11/24/16 15:59 Ranitidine HCl (Zantac) 150 mg ACBREAKFAST ORAL 10/26/16 06:30 11/25/16 06:29 10/26/16 06:04 Tramadol HCl (Ultram) 50 mg Q8H PRN ORAL For Pain 10/25/16 16:00 11/01/16 15:59 Triamterene/HCTZ (Dyazide) 1 tab DAILY ORAL 10/26/16 09:00 11/25/16 08:59 10/26/16 09:16 T[facility] ([facility])Meera NP Oct 26, 2016 12:04
--- NOTE | 2016-10-26 12:13 | General Progress Note ---
Assessment/Plan Status: stable Assessment/Plan 1. COPD exacerbation - tapering IV solumedrol 40 mg daily and cont IV empiric abx. improving. cont breathing txt as well. 2. Leukocytosis - most likely 2nd to steroid - cont to monitor for now. 3. Hyperlipidemia. cont lipitor 10 mg one po qhs. 4. History of breast cancer. Continue Arimidex 1 mg daily. 5. Gastroesophageal reflux disease. on zantac 150 mg daily. 6. HTN - cont lopressor 12.5 mg q 12 hrs and dyazide one daily. Subjective Date patient seen: Oct 26, 2016 Time patient seen: 11:40 Constitutional: Reports: no symptoms HEENT: Reports: no symptoms Cardiovascular: Reports: no symptoms Respiratory: Reports: no symptoms Gastrointestinal/Abdominal: Reports: no symptoms Genitourinary: Reports: no symptoms Neurologic/Psychiatric: Reports: no symptoms Endocrine: Reports: no symptoms Hematologic/Lymphatic: Reports: no symptoms Allergies: Coded Allergies: ERYTHROMYCIN BASE (Verified Allergy, Unknown, 10/24/16) COPIED FROM UNCODED SECTION Subjective She is doing better and her sob has improved. Afebrile. no chest pain, nausea or vomiting. Her WBC has increased to 18,000 most likely 2nd to steroid. Objective Last 24 Hour Vital Signs Date Time Temp Pulse Resp B/P Pulse Ox O2 Delivery O2 Flow Rate FiO2 10/26/16 11:52 97.1 99 20 139/81 98 10/26/16 09:16 125 128/82 10/26/16 08:00 97.7 125 24 128/82 96 Nasal Cannula 2.0 10/26/16 06:48 102 20 97 Nasal Cannula 2.0 10/26/16 06:40 94 20 94 Nasal Cannula 2.0 10/26/16 06:40 94 20 Nasal Cannula 2.0 10/26/16 04:25 93 20 98 Nasal Cannula 3.0 10/26/16 04:18 91 20 97 Nasal Cannula 3.0 10/26/16 04:00 97.0 91 24 143/89 97 Room Air 10/26/16 00:45 Nasal Cannula 2.0 28 10/26/16 00:44 Nasal Cannula 2.0 10/26/16 00:00 97.7 84 20 146/95 96 Room Air 10/25/16 20:35 89 140/79 10/25/16 20:00 97.9 89 20 140/79 98 Room Air 10/25/16 19:00 108 22 Nasal Cannula 2.0 10/25/16 19:00 Nasal Cannula 2.0 10/25/16 19:00 Nasal Cannula 2.0 28 10/25/16 15:53 98.4 95 16 132/95 95 Nasal Cannula 95 10/25/16 13:16 28 10/25/16 13:16 102 18 95 Nasal Cannula 2.0 28 10/25/16 13:10 Nasal Cannula 2.0 28 Intake and Output 10/25/16 10/26/16 19:00 07:00 Intake Total 660 ml 360 ml Balance 660 ml 360 ml Intake Oral 660 ml 360 ml # Voids 5 Laboratory Tests 10/26/16 05:15: White Blood Count 18.2H, Red Blood Count 4.57, Hemoglobin 14.6, Hematocrit 44.6 , Mean Corpuscular Volume 98, Mean Corpuscular Hemoglobin 31.9H, Mean Corpuscular Hemoglobin Concent 32.7, Red Cell Distribution Width 11.8, Platelet Count 161, Mean Platelet Volume 8.1, Neutrophils (%) (Auto) , Lymphocytes (%) ( Auto) , Monocytes (%) (Auto) , Eosinophils (%) (Auto) , Basophils (%) (Auto) , Differential Total Cells Counted 100, Neutrophils % (Manual) 86H, Lymphocytes % (Manual) 7L, Monocytes % (Manual) 7, Eosinophils % (Manual) 0, Basophils % ( Manual) 0, Band Neutrophils 0, Platelet Estimate Adequate, Platelet Morphology Normal, Red Blood Cell Morphology Normal, Sodium Level 142, Potassium Level 3.9 , Chloride Level 98, Carbon Dioxide Level 25, Anion Gap 19H, Blood Urea Nitrogen 26H, Creatinine 1.2H, Estimat Glomerular Filtration Rate , Glucose Level 122H, Calcium Level 9.8 Height (Feet): 5 Height (Inches): 0.00 Weight (Pounds): 100 General Appearance: no apparent distress, alert Neck: non-tender, normal alignment, supple Cardiovascular: normal peripheral pulses, normal rate, regular rhythm Respiratory/Chest: chest wall non-tender, lungs clear, normal breath sounds Abdomen: normal bowel sounds, non tender, soft Extremities: normal range of motion, non-tender Edema: no edema noted Arm (L), no edema noted Arm (R), no edema noted Leg (L), no edema noted Leg (R), no edema noted Pedal (L), no edema noted Pedal (R), no edema noted Generalized Neurologic: alert, responsive Skin: warm/dry Lymphatic: normal anterior cervical (L), normal anterior cervical (R), normal axillary (L), normal axillary (R), normal inguinal (L), normal inguinal (R), normal other, normal posterior cervical (L), normal posterior cervical (R), normal submandibular (L), normal submandibular (R), normal supraclavicular (L), normal supraclavicular (R) MARIA R CALZADA Oct 26, 2016 12:13
[2016-10-26 16:15] VITALS: BP 130/85
--- NOTE | 2016-10-26 16:32 | Cardiology Report ---
APPROVED REPORT EKG Measurement Heart [id number] Sinus tachycardia Left anterior fascicular block Nonspecific ST abnormality Abnormal ECG
[2016-10-26 20:15] VITALS: BP 136/86
[2016-10-26] MEDS: Promethazine/Codeine 5ml UD ORAL PRN (22:09)
[2016-10-27] VITALS: BP 133/79
[2016-10-27] MEDS: Albuterol ud Inhalation HHN SCH ×4 (01:00→19:00)
[2016-10-27 04:00] VITALS: BP 145/74
[2016-10-27] MEDS: DuoNeb 0.5-3(2.5)mg/3ml neb HHN PRN (05:00)
[2016-10-27 07:14] LABS: BASOPHILS % (AUTO) 0.1 % (0.0-2.0); LYMPHOCYTES % (AUTO) 8.6 % (20.0-45.0); MEAN CORPUSCULAR HEMOGLOBIN 32.5 PG (27.0-31.0); MEAN CORPUSCULAR HGB CONC 33.2 G/DL (32.0-36.0); MEAN CORPUSCULAR VOLUME 98 FL (80-99); MEAN PLATELET VOLUME 7.9 FL (6.5-10.1); MONOCYTES % (AUTO) 8.5 % (1.0-10.0); NEUTROPHILS % (AUTO) 82.8 % (45.0-75.0); PLATELET COUNT 155 K/UL (150-450); RED BLOOD COUNT 4.26 M/UL (4.20-5.40); RED CELL DISTRIBUTION WIDTH 11.7 % (11.6-14.8); WHITE BLOOD COUNT 14.5 K/UL (4.8-10.8)
[2016-10-27 07:27] LABS: ANION GAP 14 (5-15); CALCIUM 9.9 mg/dL (8.6-10.2); CARBON DIOXIDE 28 mEQ/L (20-30); CHLORIDE 101 mEQ/L (98-107); CREATININE 1.2 mg/dL (0.5-0.9); HEMOLYSIS 10; POTASSIUM 4.2 mEQ/L (3.4-4.9); SODIUM 143 mEQ/L (135-145)
[2016-10-27 08:00] VITALS: BP 137/92
[2016-10-27] MEDS: Dyazide 18.75/12.5mg tab ORAL SCH (08:49)
[2016-10-27] MEDS: Anastrazole 1mg tab ORAL SCH (08:49)
[2016-10-27] MEDS: Metoprolol Tartrate 12.5mg TAB ORAL SCH ×2 (08:53→21:29)
[2016-10-27] MEDS ORDERED: Solu-MEDROL 40mg Inj IVP SCH (09:00)
--- NOTE | 2016-10-27 09:06 | General Progress Note ---
Assessment/Plan Status: stable Assessment/Plan 1. COPD exacerbation - consider changing IV steroid to oral today. will discuss with pulm. cont breathing txt as well. D/C planning 1-2 days. 2. Leukocytosis - improved. most likely 2nd to steroid. 3. candidasis in sputum - need to start fluconazole 100 mg IV daily and change to PO as outpatient. 4. Hyperlipidemia. cont lipitor 10 mg one po qhs. 5. History of breast cancer. Continue Arimidex 1 mg daily. 6. Gastroesophageal reflux disease. on zantac 150 mg daily. 7. HTN - cont lopressor 12.5 mg q 12 hrs and dyazide one daily. Subjective Date patient seen: Oct 27, 2016 Time patient seen: 08:00 Constitutional: Reports: no symptoms HEENT: Reports: no symptoms Cardiovascular: Reports: no symptoms Respiratory: Reports: cough Gastrointestinal/Abdominal: Reports: no symptoms Genitourinary: Reports: no symptoms Neurologic/Psychiatric: Reports: no symptoms Endocrine: Reports: no symptoms Hematologic/Lymphatic: Reports: no symptoms Allergies: Coded Allergies: ERYTHROMYCIN BASE (Verified Allergy, Unknown, 10/24/16) COPIED FROM UNCODED SECTION Subjective She is doing better but she still has some coughing. Afebrile. no chest pain, nausea or vomiting. Her WBC has improved after tapering steroid. Objective Last 24 Hour Vital Signs Date Time Temp Pulse Resp B/P Pulse Ox O2 Delivery O2 Flow Rate FiO2 10/27/16 08:53 89 137/92 10/27/16 05:21 95 20 98 Nasal Cannula 3.0 10/27/16 05:00 93 20 97 Nasal Cannula 3.0 10/27/16 04:00 96.3 67 18 145/74 98 Room Air 10/27/16 01:13 Nasal Cannula 2.0 10/27/16 01:13 Nasal Cannula 2.0 10/27/16 00:00 97.3 73 18 133/79 96 Room Air 10/26/16 20:48 87 136/86 10/26/16 20:15 97.7 87 16 136/86 96 Nasal Cannula 2.0 10/26/16 18:58 Nasal Cannula 2.0 10/26/16 18:57 85 20 Nasal Cannula 2.0 10/26/16 18:57 Nasal Cannula 2.0 10/26/16 16:15 97.7 83 20 130/85 96 Nasal Cannula 2.0 10/26/16 13:26 Nasal Cannula 2.0 10/26/16 13:26 99 20 98 Nasal Cannula 2.0 10/26/16 11:52 97.1 99 20 139/81 98 10/26/16 09:16 125 128/82 Intake and Output 10/26/16 10/27/16 19:00 07:00 Intake Total 900 ml 720 ml Output Total 100 ml Balance 800 ml 720 ml Intake Oral 900 ml 720 ml Output Urine Total 100 ml # Voids 4 Laboratory Tests 10/27/16 05:35: White Blood Count 14.5H, Red Blood Count 4.26, Hemoglobin 13.8, Hematocrit 41.6 , Mean Corpuscular Volume 98, Mean Corpuscular Hemoglobin 32.5H, Mean Corpuscular Hemoglobin Concent 33.2, Red Cell Distribution Width 11.7, Platelet Count 155, Mean Platelet Volume 7.9, Neutrophils (%) (Auto) 82.8H, Lymphocytes ( %) (Auto) 8.6L, Monocytes (%) (Auto) 8.5, Eosinophils (%) (Auto) 0.0, Basophils (%) (Auto) 0.1, Sodium Level 143, Potassium Level 4.2, Chloride Level 101, Carbon Dioxide Level 28, Anion Gap 14, Blood Urea Nitrogen 35H, Creatinine 1.2H , Estimat Glomerular Filtration Rate , Glucose Level 99, Calcium Level 9.9 Height (Feet): 5 Height (Inches): 0.00 Weight (Pounds): 100 General Appearance: no apparent distress Neck: non-tender, normal alignment, supple Cardiovascular: normal peripheral pulses, normal rate, regular rhythm Respiratory/Chest: normal breath sounds, expiratory wheezing Abdomen: non tender, soft, no organomegaly Extremities: normal range of motion, non-tender Edema: no edema noted Arm (L), no edema noted Arm (R), no edema noted Leg (L), no edema noted Leg (R), no edema noted Pedal (L), no edema noted Pedal (R), no edema noted Generalized Neurologic: alert, responsive Skin: warm/dry Lymphatic: normal anterior cervical (L), normal anterior cervical (R), normal axillary (L), normal axillary (R), normal inguinal (L), normal inguinal (R), normal other, normal posterior cervical (L), normal posterior cervical (R), normal submandibular (L), normal submandibular (R), normal supraclavicular (L), normal supraclavicular (R) MARIA R CALZADA Oct 27, 2016 09:06
--- NOTE | 2016-10-27 10:31 | Diagnostic Imaging Report ---
Indication: SOB Technique: One view of the chest Comparison: 10/24/2016 Findings: There is slightly increased atelectasis at the left lung base. Lungs and pleural spaces otherwise clear. Surgical clips are seen in the right chest wall/axilla findings are unchanged Impression: No acute process
[2016-10-27 12:00] VITALS: BP 131/76
[2016-10-27] MEDS ORDERED: D5NS 1000ml IV ONE (16:23)
[2016-10-27 16:30] VITALS: BP 112/64
[2016-10-27] MEDS: Promethazine/Codeine 5ml UD ORAL PRN (16:38)
--- NOTE | 2016-10-27 16:43 | Pulmonology Progress Note ---
Assessment/Plan Problems: (1) COPD exacerbation (2) Bronchitis (3) Emphysema of lung (4) History of hypertension Assessment/Plan improving respiratory treatment taper steroids chest pt check sputum dc planning d/w dr Price Subjective ROS Limited/Unobtainable: No Interval Events: less short of breath Allergies: Coded Allergies: ERYTHROMYCIN BASE (Verified Allergy, Unknown, 10/24/16) COPIED FROM UNCODED SECTION Objective Last 24 Hour Vital Signs Date Time Temp Pulse Resp B/P Pulse Ox O2 Delivery O2 Flow Rate FiO2 10/27/16 14:10 80 20 99 Room Air 2.0 28 10/27/16 13:58 79 19 94 Room Air 2.0 28 10/27/16 13:58 28 10/27/16 12:00 96.8 71 18 131/76 94 Room Air 10/27/16 08:53 89 137/92 10/27/16 08:00 89 19 96 Nasal Cannula 2.0 28 10/27/16 08:00 96.6 90 18 137/92 94 Nasal Cannula 2.0 10/27/16 07:51 86 18 96 Nasal Cannula 2.0 28 10/27/16 07:51 86 18 Nasal Cannula 2.0 28 10/27/16 07:51 28 10/27/16 05:21 95 20 98 Nasal Cannula 3.0 10/27/16 05:00 93 20 97 Nasal Cannula 3.0 10/27/16 04:00 96.3 67 18 145/74 98 Room Air 10/27/16 01:13 Nasal Cannula 2.0 10/27/16 01:13 Nasal Cannula 2.0 10/27/16 00:00 97.3 73 18 133/79 96 Room Air 10/26/16 20:48 87 136/86 10/26/16 20:15 97.7 87 16 136/86 96 Nasal Cannula 2.0 10/26/16 18:58 Nasal Cannula 2.0 10/26/16 18:57 85 20 Nasal Cannula 2.0 10/26/16 18:57 Nasal Cannula 2.0 Intake and Output 10/26/16 10/27/16 19:00 07:00 Intake Total 900 ml 720 ml Output Total 100 ml Balance 800 ml 720 ml Intake Oral 900 ml 720 ml Output Urine Total 100 ml # Voids 4 General Appearance: cachetic HEENT: normocephalic, anicteric Respiratory/Chest: chest wall non-tender, lungs clear Cardiovascular: normal peripheral pulses, normal rate Abdomen: normal bowel sounds, soft, non tender Genitourinary: normal external genitalia Extremities: no cyanosis Skin: no rash 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 Microbiology Date/Time Source Procedure Growth Status 10/25/16 14:30 Sputum Expectorated Gram Stain - Final Complete 10/25/16 14:30 Sputum Culture - Final Caitlyn Albicans Usual Upper Respiratory Siria Complete Laboratory Tests 10/27/16 05:35: White Blood Count 14.5H, Red Blood Count 4.26, Hemoglobin 13.8, Hematocrit 41.6 , Mean Corpuscular Volume 98, Mean Corpuscular Hemoglobin 32.5H, Mean Corpuscular Hemoglobin Concent 33.2, Red Cell Distribution Width 11.7, Platelet Count 155, Mean Platelet Volume 7.9, Neutrophils (%) (Auto) 82.8H, Lymphocytes ( %) (Auto) 8.6L, Monocytes (%) (Auto) 8.5, Eosinophils (%) (Auto) 0.0, Basophils (%) (Auto) 0.1, Sodium Level 143, Potassium Level 4.2, Chloride Level 101, Carbon Dioxide Level 28, Anion Gap 14, Blood Urea Nitrogen 35H, Creatinine 1.2H , Estimat Glomerular Filtration Rate , Glucose Level 99, Calcium Level 9.9 Current Medications Medications (Trade) Dose Ordered Sig/Oanh Route PRN Reason Start Time Stop Time Status Last Admin Dose Admin Albuterol Sulfate (Proventil) 2.5 mg Q6HRT HHN 10/25/16 19:00 10/27/16 19:01 10/27/16 13:58 Albuterol/ Ipratropium (DuoNeb 0.5-3(2.5)mg/3ml) 3 ml Q4H PRN HHN Shortness of Breath 10/25/16 16:00 10/30/16 15:59 10/27/16 05:00 Anastrozole (Arimidex) 1 mg DAILY ORAL 10/26/16 09:00 11/25/16 08:59 10/27/16 08:49 Atorvastatin Calcium (Lipitor) 10 mg BEDTIME ORAL 10/25/16 21:00 11/24/16 20:59 10/26/16 20:49 Levofloxacin (Levaquin) 250 mg Q24H ORAL 10/25/16 18:00 11/01/16 17:59 10/26/16 17:08 Lorazepam (Ativan) 1 mg QHS PRN ORAL For Anxiety 10/25/16 21:00 11/01/16 20:59 10/26/16 06:47 Magnesium Hydroxide (Mom) 30 ml DAILYPRN PRN ORAL INDIGESTION 10/25/16 16:00 11/24/16 15:59 Methylprednisolone Sodium Succinate (Solu-MEDROL) 40 mg DAILY IVP 10/27/16 09:00 11/26/16 08:59 10/27/16 08:49 Metoprolol Tartrate (Lopressor) 12.5 mg Q12HR ORAL 10/25/16 21:00 11/24/16 20:59 10/27/16 08:53 Promethazine HCl/ Codeine (Phenergan with Codeine) 5 ml Q6H PRN ORAL For Cough 10/25/16 16:00 11/24/16 15:59 10/27/16 16:38 Ranitidine HCl (Zantac) 150 mg ACBREAKFAST ORAL 10/26/16 06:30 11/25/16 06:29 10/27/16 06:12 Tramadol HCl (Ultram) 50 mg Q8H PRN ORAL For Pain 10/25/16 16:00 11/01/16 15:59 10/26/16 20:49 Triamterene/HCTZ (Dyazide) 1 tab DAILY ORAL 10/26/16 09:00 11/25/16 08:59 10/27/16 08:49 YUDITH POSADA Oct 27, 2016 16:43
[2016-10-27 21:27] VITALS: BP 156/86
[2016-10-28] VITALS (9 sets, daily range): BP systolic 101–153; BP diastolic 60–99
[2016-10-28] MEDS: Promethazine/Codeine 5ml UD ORAL PRN (05:59)
[2016-10-28 07:11] LABS: ANION GAP 15 (5-15); CARBON DIOXIDE 27 mEQ/L (20-30); CHLORIDE 99 mEQ/L (98-107); CREATININE 1.1 mg/dL (0.5-0.9); HEMOLYSIS 22; POTASSIUM 4.4 mEQ/L (3.4-4.9); SODIUM 141 mEQ/L (135-145)
[2016-10-28 07:13] LABS: BASOPHILS % (AUTO) 0.2 % (0.0-2.0); LYMPHOCYTES % (AUTO) 9.9 % (20.0-45.0); MEAN CORPUSCULAR HEMOGLOBIN 31.9 PG (27.0-31.0); MEAN CORPUSCULAR HGB CONC 32.8 G/DL (32.0-36.0); MEAN CORPUSCULAR VOLUME 97 FL (80-99); MONOCYTES % (AUTO) 9.6 % (1.0-10.0); NEUTROPHILS % (AUTO) 80.3 % (45.0-75.0); PLATELET COUNT 180 K/UL (150-450); RED BLOOD COUNT 4.49 M/UL (4.20-5.40); RED CELL DISTRIBUTION WIDTH 11.6 % (11.6-14.8); WHITE BLOOD COUNT 14.6 K/UL (4.8-10.8)
[2016-10-28] MEDS: Metoprolol Tartrate 12.5mg TAB ORAL SCH (08:18)
[2016-10-28] MEDS: Anastrazole 1mg tab ORAL SCH (08:39)
[2016-10-28] MEDS: Dyazide 18.75/12.5mg tab ORAL SCH (08:39)
[2016-10-28] MEDS ORDERED: PROMETHAZINE-C118 M1 ORAL (08:45)
[2016-10-28] MEDS ORDERED: PREDNISONE20 M1 PO (08:45)
[2016-10-28] MEDS ORDERED: PREDNISONE5 M3 PO ×2 (08:47→08:48)
[2016-10-28] MEDS ORDERED: FLUCONAZOLE100 MG ORAL (08:51)
[2016-10-28] MEDS ORDERED: PredniSONE 20mg tab ORAL SCH (09:00)
--- NOTE | 2016-10-28 13:17 | Pulmonology Progress Note ---
Assessment/Plan Problems: (1) COPD exacerbation (2) Bronchitis (3) Emphysema of lung (4) History of hypertension Assessment/Plan dc planning in progress pulse oximeter on room air doesn't need oxygen improving respiratory treatment taper steroids chest pt check sputum dc planning d/w dr Price Subjective ROS Limited/Unobtainable: No Interval Events: sitting up on the chair, looks better than yesterday Allergies: Coded Allergies: ERYTHROMYCIN BASE (Verified Allergy, Unknown, 10/24/16) COPIED FROM UNCODED SECTION Objective Last 24 Hour Vital Signs Date Time Temp Pulse Resp B/P Pulse Ox O2 Delivery O2 Flow Rate FiO2 10/28/16 11:21 97.0 76 18 143/83 97 10/28/16 08:18 69 146/83 10/28/16 08:09 96.6 69 17 146/83 97 Nasal Cannula 3.0 10/28/16 08:00 98.1 89 21 101/60 98 Room Air 10/28/16 04:00 97.6 63 18 152/88 98 Nasal Cannula 2.0 10/28/16 01:00 Nasal Cannula 10/28/16 01:00 Room Air 10/28/16 00:00 97.5 66 18 153/99 100 Nasal Cannula 2.0 10/27/16 21:29 77 156/86 10/27/16 21:27 97.7 77 22 156/86 98 Nasal Cannula 2.0 10/27/16 20:01 Nasal Cannula 2.0 28 10/27/16 20:00 82 Nasal Cannula 2.0 28 10/27/16 16:30 97.5 91 19 112/64 96 Nasal Cannula 2.0 10/27/16 14:10 80 20 99 Room Air 2.0 28 10/27/16 13:58 79 19 94 Room Air 2.0 28 10/27/16 13:58 28 Intake and Output 10/27/16 10/28/16 19:00 07:00 Intake Total 320 ml 600 ml Output Total 240 ml Balance 320 ml 360 ml Intake Oral 320 ml 600 ml Output Urine Total 240 ml # Voids 4 General Appearance: WD/WN Respiratory/Chest: chest wall non-tender, lungs clear Abdomen: normal bowel sounds, soft, non tender 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 Microbiology Date/Time Source Procedure Growth Status 10/25/16 14:30 Sputum Expectorated Gram Stain - Final Complete 10/25/16 14:30 Sputum Culture - Final Caitlyn Albicans Usual Upper Respiratory Siria Complete Laboratory Tests 10/28/16 06:10: White Blood Count 14.6H, Red Blood Count 4.49, Hemoglobin 14.3, Hematocrit 43.7 , Mean Corpuscular Volume 97, Mean Corpuscular Hemoglobin 31.9H, Mean Corpuscular Hemoglobin Concent 32.8, Red Cell Distribution Width 11.6, Platelet Count 180, Mean Platelet Volume 8.0, Neutrophils (%) (Auto) 80.3H, Lymphocytes ( %) (Auto) 9.9L, Monocytes (%) (Auto) 9.6, Eosinophils (%) (Auto) 0.0, Basophils (%) (Auto) 0.2, Sodium Level 141, Potassium Level 4.4, Chloride Level 99, Carbon Dioxide Level 27, Anion Gap 15, Blood Urea Nitrogen 27H, Creatinine 1.1H , Estimat Glomerular Filtration Rate , Glucose Level 101, Calcium Level 10.0 Current Medications Medications (Trade) Dose Ordered Sig/Oanh Route PRN Reason Start Time Stop Time Status Last Admin Dose Admin Albuterol/ Ipratropium (DuoNeb 0.5-3(2.5)mg/3ml) 3 ml Q4H PRN HHN Shortness of Breath 10/25/16 16:00 10/30/16 15:59 10/27/16 05:00 Anastrozole (Arimidex) 1 mg DAILY ORAL 10/26/16 09:00 11/25/16 08:59 10/28/16 08:39 Atorvastatin Calcium (Lipitor) 10 mg BEDTIME ORAL 10/25/16 21:00 11/24/16 20:59 10/27/16 21:29 Lorazepam (Ativan) 1 mg QHS PRN ORAL For Anxiety 10/25/16 21:00 11/01/16 20:59 10/26/16 06:47 Magnesium Hydroxide (Mom) 30 ml DAILYPRN PRN ORAL INDIGESTION 10/25/16 16:00 11/24/16 15:59 Metoprolol Tartrate (Lopressor) 12.5 mg Q12HR ORAL 10/25/16 21:00 11/24/16 20:59 10/28/16 08:18 Prednisone (predniSONE) 20 mg DAILY ORAL 10/28/16 09:00 11/27/16 08:59 10/28/16 08:18 Promethazine HCl/ Codeine (Phenergan with Codeine) 5 ml Q6H PRN ORAL For Cough 10/25/16 16:00 11/24/16 15:59 10/28/16 05:59 Ranitidine HCl (Zantac) 150 mg ACBREAKFAST ORAL 10/26/16 06:30 11/25/16 06:29 10/28/16 05:59 Tramadol HCl (Ultram) 50 mg Q8H PRN ORAL For Pain 10/25/16 16:00 11/01/16 15:59 10/26/16 20:49 Triamterene/HCTZ (Dyazide) 1 tab DAILY ORAL 10/26/16 09:00 11/25/16 08:59 10/28/16 08:39 YUDITH POSADA Oct 28, 2016 13:17
[2016-10-28] MEDS ORDERED: Tubing IV Secondary IV ONE (18:14)
[2016-10-28] MEDS ORDERED: NS 275ml ONE (18:14)
--- NOTE | 2016-10-30 12:47 | Discharge Summary ---
DATE OF ADMISSION: 10/24/2016 DATE OF DISCHARGE: 10/28/2016 HOSPITAL COURSE: This is an 86-year-old white female who resides at assisted living was brought in by paramedics for complaint of worsening shortness of breath for three days prior to admission. The patient was recently hospitalized at [facility] for viral syndrome and H flu and she improved slightly but getting worse again and was brought in back to [facility]. The patient received Solu-Medrol for her COPD exacerbation along with breathing treatment and empiric antibiotics. She received IV Levaquin. The patient was seen by Pulmonary, Dr. Melendez as well as inpatient. She responded to the IV Solu-Medrol and slowly improved. DISCHARGE DIAGNOSES: 1. Chronic obstructive pulmonary disease exacerbation. 2. Hyperlipidemia. 3. History of breast cancer. 4. Gastroesophageal reflux disease. 5. Hypertension. 6. Oral candidiasis DISCHARGE MEDICATIONS: Include promethazine with codeine one teaspoons q.6 hours p.r.n., fluconazole 100 mg one daily for seven days, Prednisone 20 mg daily for four days, followed by 10 mg daily for two days followed by 5 mg daily for two days, and Tylenol 500 mg q.8 hours p.r.n., 1 mg daily, Ventolin every eight hours p.r.n., metoprolol 12.5 mg q.12 hours, ranitidine 150 mg b.i.d., Zocor 20 mg at nightly, and Maxzide 37.5/25 mg one p.o. daily. DISPOSITION: The patient will be transferred back to [facility] called [facility] and I will follow the patient within one week. Kacie Nunez M.D. DR: Wale JOB#: [id number] CC: VETO
--- NOTE | 2016-11-12 09:21 | Diagnostic Imaging Report ---
Indication: Cough Technique: One view of the chest Comparison: none Findings: Surgical clips are seen in the right axilla. Lungs and pleural space are clear. Heart size is normal. Impression: Negative
== END 2016-10-28 18:15 | DRG 192 ==
LOC: EDBD 11:58 → EMR 13:00 → 2E 13:07 → EDBEDREQ 13:23 → 2E 17:18 → 4E 10-25 15:40 → 3E 10-28 06:19
DX: J44.1 Chronic obstructive pulmonary disease with (acute) exacerbation (principal); I10 Essential (primary) hypertension; H91.90 Unspecified hearing loss, unspecified ear; D72.829 Elevated white blood cell count, unspecified; K21.9 Gastro-esophageal reflux disease without esophagitis; Z85.3 Personal history of malignant neoplasm of breast; Z87.891 Personal history of nicotine dependence
CPT/HCPCS: 36415; 71010; 80048; 80053; 82550; 82553; 83880; 84484; 85007; 85025; 87070; 87081; 87205; 93005; 94640; 94664; J7620

== ENCOUNTER 2017-06-19 12:44 | Emergency (ER) | payer MEDICARE, OTHER ==
[~2017-06-19] VITALS: Ht 162.6 cm; Wt 54.4 kg
[~2017-06-19 12:44] MED LIST: ANASTROZOLE1 MG PO; FLUCONAZOLE100 MG ORAL; GUAIFENESI100 MG/5 M ORAL; MAXZIDE 37.5 M1 EAC1 PO; METOPROLOL TART25 MG ORAL; PREDNISONE20 M1 PO; PREDNISONE5 M3 PO; PROMETHAZINE-C118 M1 ORAL; RANITIDINE HCL150 M2 PO; SIMVASTATIN20 MG ORAL; TYLENOL EXTRA500 MG ORAL; VENTOLIN HFA18 GM INH; ZANTAC150 MG ORAL
[2017-06-19 12:50] VITALS: BP 110/57
--- NOTE | 2017-06-19 13:05 | Emergency Room Report ---
History of Present Illness General Chief Complaint: Multiple Trauma/Fall Present Illness HPI [id number] BIBEMS from SNF with ground level trip/fall, hit right side of head No LOC, neck pain, nausea/vomiting Denies chest pain, SOB, abd pain, extremity pain ?if she is on ASA Denies other AC Has "old" bump to head in same place Allergies: Coded Allergies: AZITHROMYCIN (Unverified Allergy, Unknown, 06/19/17) ERYTHROMYCIN BASE (Verified Allergy, Unknown, 10/24/16) COPIED FROM UNCODED SECTION Patient History Past Medical History: see triage record Past Surgical History: none Pertinent Family History: none Social History: Denies: smoking, alcohol use, drug use Now: No Immunizations: UTD Reviewed Nursing Documentation: PMH: Agreed, PSxH: Agreed Nursing Documentation-PMH Hx Cardiac Problems: Yes Hx Hypertension: Yes Hx COPD: Yes Hx Cancer: No Hx Gastrointestinal Problems: Yes Hx Neurological Problems: No Review of Systems All Other Systems: negative except mentioned in HPI Physical Exam Vital Signs Date Time Temp Pulse Resp B/P (MAP) Pulse Ox O2 Delivery O2 Flow Rate FiO2 06/19/17 12:40 98.1 70 20 115/63 95 Room Air Sp02 EP Interpretation: reviewed, normal General Appearance: normal inspection, well appearing, no apparent distress, alert, GCS 15, non-toxic Head: normocephalic, other - 2cm hematoma with overlyign abrasion to parietal/ temporal area on right. There is an existing ?cyst/hard mass proximal to the abrasion Eyes: bilateral eye PERRL, bilateral eye EOMI ENT: normal ENT inspection, hearing grossly normal, normal voice Neck: normal inspection, full range of motion, supple, no bony tend, other - No midline neck ttp Respiratory: normal inspection, lungs clear, normal breath sounds, no rhonchi, no respiratory distress, no retraction, no accessory muscle use, no wheezing, speaking full sentences Cardiovascular #1: regular rate, rhythm, no edema Gastrointestinal: normal inspection, normal bowel sounds, non tender, soft, no guarding, no hernia Genitourinary: no CVA tenderness Musculoskeletal: normal inspection, back normal, normal range of motion, Angle' s Sign negative Neurologic: normal inspection, alert, oriented x3, responsive, performance architect III-XII nml as tested, speech normal Psychiatric: normal inspection, judgement/insight normal, mood/affect normal Skin: normal inspection, normal color, no rash Lymphatic: normal inspection Medical Decision Making Diagnostic Impression: Primary Impression: Fall Qualified Codes: W19.XXXA - Unspecified fall, initial encounter Additional Impression: Hematoma of occipital surface of head Qualified Codes: S00.83XA - Contusion of other part of head, initial encounter ER Course Ground level fall VSS. Afebrile Small abrasion tetanus updated CT head negative for ICH No other injuries DC back to [facility] Last Vital Signs Date Time Temp Pulse Resp B/P (MAP) Pulse Ox O2 Delivery O2 Flow Rate FiO2 06/19/17 12:40 98.1 70 20 115/63 95 Room Air Status: improved Disposition: [facility] THELMA MARTINEZ M.D. Jun 19, 2017 13:05
[2017-06-19] MEDS ORDERED: Tetanus/Diptheria/Pertussis Vaccine 0.5ml Syr IM ONE (13:15)
--- NOTE | 2017-06-19 13:38 | Diagnostic Imaging Report ---
Indications: Trauma to right parietal area secondary to fall Technique: Spiral acquisitions obtained through the brain. Angled axial and coronal 5 x 5 mm slices were reconstructed. Total dose length product 1347 mGycm. CTDI vol(s) 70 mGy. Dose reduction achieved using automated exposure control Comparison: None Findings: There is enlargement of the ventricles and extra axial CSF spaces. There is periventricular deep white matter low-attenuation. There is ventricular peritoneal shunt tubing, catheter entering via the right frontal calvarium, traversing the right frontal lobe, and entering the right lateral ventricle, crosses septum pellucidum, tip in the left lateral ventricle. Is a small amount of encephalomalacia of the right frontal lobe adjacent to the ventriculostomy catheter. There is a small right frontal scalp hematoma. No underlying calvarial injury. No acute intracranial hemorrhage or edema, mass effect, nor midline shift. Otherwise normal solano-white differentiation. Sinuses are clear. The orbits are unremarkable. The mastoids are clear. There is evidence of prior mastoid surgery on the right. Impression: Ventriculoperitoneal shunt in place, as described Ventriculomegaly, probably secondary to central parenchymal volume loss, but a component of hydrocephalus/shunt dysfunction not excludable. Correlation with any prior exams available is recommended There is also evidence of cortical volume loss Periventricular deep white matter low attenuation, probably on the basis of chronic ischemic change. Low-attenuation secondary to transependymal migration of CSF in the setting of acute hydrocephalus is also a possibility, but less likely Negative for acute intracranial bleed or mass effect Small area of encephalomalacia in the right frontal lobe. Likely related to prior ventriculostomy insertion, or could represent a small infarct Small right high parietal scalp hematoma Evidence of prior right mastoid surgery The CT scanner at [facility] is accredited by the [employer] and the scans are performed using protocols designed to limit radiation exposure to as low as reasonably achievable to attain images of sufficient resolution adequate for diagnostic evaluation.
[2017-06-19 13:50] VITALS: BP 110/60
[2017-06-19 14:33] VITALS: BP 110/60
== END 2017-06-19 14:33 ==
LOC: EDBD 12:44 → EMR 13:11
DX: S00.03XA Contusion of scalp, initial encounter (principal); W01.0XXA Fall on same level from slipping, tripping and stumbling without subsequent striking against object, initial encounter; Y92.199 Unspecified place in other specified residential institution as the place of occurrence of the external cause; Z23 Encounter for immunization; Z98.2 Presence of cerebrospinal fluid drainage device; J44.9 Chronic obstructive pulmonary disease, unspecified; I10 Essential (primary) hypertension
CPT/HCPCS: 70450; 90471; 90715; 99284

== ENCOUNTER 2017-07-23 06:16 | Emergency (ER) | payer MEDICARE, OTHER ==
[~2017-07-23] VITALS: Ht 154.9 cm; Wt 54.4 kg
[2017-07-23 06:25] VITALS: BP 118/71
[2017-07-23] MEDS ORDERED: Tylenol #3 tab (300mg/30mg) PO ONE (06:45)
[2017-07-23] MEDS ORDERED: VITAMIN B-12500 MCG ORAL (06:49)
[2017-07-23] MEDS ORDERED: PRILOSEC OTC20 MG ORAL (06:49)
[2017-07-23] MEDS ORDERED: AMLODIPINE BESYL5 MG ORAL (06:49)
[2017-07-23] MEDS ORDERED: MIRALAX17 G2 ORAL (06:49)
--- NOTE | 2017-07-23 06:50 | Emergency Room Report ---
History of Present Illness General Chief Complaint: Multiple Trauma/Fall Source: Patient, Medical Record Present Illness HPI [id number] female presents ED complaining of lower back pain status post fall. Patient states she had of tripping fall this morning in the bathroom. Patient does not remember if she hit her head. Patient is here complaining of lower back pain pain in tailbone. 8/10, sharp, nonradiating. States she's unable to bear weight. No other aggravating relieving factors. Denies any other associated symptoms Allergies: Coded Allergies: AZITHROMYCIN (Unverified Allergy, Unknown, 06/19/17) ERYTHROMYCIN BASE (Verified Allergy, Unknown, 10/24/16) COPIED FROM UNCODED SECTION Patient History Past Medical History: HTN, COPD Past Surgical History: none Pertinent Family History: none Social History: Denies: smoking, alcohol use, drug use Last Menstrual Period: n/a Now: No Immunizations: UTD Reviewed Nursing Documentation: PMH: Agreed, PSxH: Agreed Nursing Documentation-PMH Past Medical History: No History, Except For Hx Cardiac Problems: Yes Hx Hypertension: Yes Hx COPD: Yes Hx Cancer: No Hx Gastrointestinal Problems: Yes Hx Neurological Problems: No Review of Systems All Other Systems: negative except mentioned in HPI Physical Exam Vital Signs Date Time Temp Pulse Resp B/P (MAP) Pulse Ox O2 Delivery O2 Flow Rate FiO2 07/23/17 06:15 99.0 91 16 140/90 100 Room Air Sp02 EP Interpretation: reviewed, normal General Appearance: no apparent distress, alert, GCS 15, non-toxic Head: normocephalic Eyes: bilateral eye normal inspection, bilateral eye PERRL ENT: normal ENT inspection Neck: normal inspection Respiratory: chest non-tender, lungs clear, normal breath sounds, speaking full sentences Cardiovascular #1: regular rate, rhythm, no edema Gastrointestinal: normal bowel sounds, non tender, soft, non-distended, no guarding, no rebound Rectal: deferred Genitourinary: no CVA tenderness, vertebral tenderness Musculoskeletal: pelvis stable Neurologic: alert, oriented x3, responsive, motor strength/tone normal, sensory intact, speech normal Psychiatric: judgement/insight normal, memory normal, mood/affect normal, no suicidal/homicidal ideation Skin: normal inspection Lymphatic: normal inspection Medical Decision Making Diagnostic Impression: Primary Impression: Osteolytic lesion Additional Impression: Sacral fracture Qualified Codes: S32.10XA - Unspecified fracture of sacrum, initial encounter for closed fracture ER Course Hospital Course 87-year-old female presents to ED with lower back pain and hip pain status post fall and senior care today Differential diagnoses include: Fracture, dislocation, sprain, contusion Clinical course Patient placed on stretcher. After initial history and physical, I ordered pain medications and CT Head, L spine and Pelvis CT head shows the conjunctiva no acute process, cc of L-spine and pelvis show sacral fracture and osteolytic lesions lumbar spine I spoke to PMD Dr. Nunez; I informed him of the findings. I offered patient option for admission but she declined stating she wishes to be discharged. He agrees with plan and will followup on the CT findings Diagnosis - osteolytic lesion, sacral fx Stable and discharged to SNF with prescription for Tylenol #3. apply ice, keep elevated. weight bear as tolerated. Followup with PMD. Return to ED if symptoms recur or worsen CT/MRI/US Diagnostic Results CT/MRI/US Diagnostic Results #1: Imaging Test Ordered: CT Head Impression [employer] shunt. no acute process CT/MRI/US Diagnostic Results #2: Imaging Test Ordered: CT L spine Impression sacral fx S3-S4. osteolytic lesions in lumbar spine CT/MRI/US Diagnostic Results #3: Imaging Test Ordered: CT Pelvis Impression no pelvic fx Last Vital Signs Date Time Temp Pulse Resp B/P (MAP) Pulse Ox O2 Delivery O2 Flow Rate FiO2 07/23/17 06:25 98.9 86 14 118/71 96 Room Air Status: improved Disposition: XFER SNF Condition: Stable Scripts Acetaminophen With Codeine (T#3) (TYLENOL #3 TAB*) Y Tab 1 TAB ORAL Q8H Y for For Pain, #20 TAB Prov: MISSY NEVAREZ M.D. 07/23/17 MISSY NEVAREZ M.D. Jul 23, 2017 06:50
[2017-07-23 08:29] VITALS: BP 124/78
--- NOTE | 2017-07-23 08:41 | Diagnostic Imaging Report ---
Indications: Pain, status post fall Technique: Spiral acquisitions obtained through the brain. Angled axial and coronal 5 x 5 mm slices were reconstructed. Total dose length product 1375 mGycm. CTDI vol(s) 70 mGy. Dose reduction achieved using automated exposure control Comparison: 06/19/2017 Findings: Again demonstrated is a right transfemoral ventriculoperitoneal shunt catheter, shaft traversing the frontal horn of the right lateral ventricle, tip in the body of the left lateral ventricle. There is some encephalomalacia of the parenchyma surrounding the ventriculostomy shaft. Ventriculomegaly is stable. There is also enlargement of the extra-axial CSF spaces. There is deep white matter low attenuation, unchanged. There is again demonstrated a right mastoid region surgical defect. Considerable cerumen is again demonstrated in the right external auditory canal. The calvarium is intact other than the hold for the ventriculoperitoneal shunt catheter. There is minimal ethmoid sinus mucosal disease. No acute intracranial hemorrhage or edema. No mass effect nor midline shift. Findings are unchanged except that the previously demonstrated right parietal scalp hematoma is no longer evident. Impression: Negative for acute intracranial bleed or mass effect Ventriculoperitoneal shunt in place Ventriculomegaly, most likely on the basis of central cerebral volume loss, particularly given stability since the previous study and evidence of associated cortical volume loss. Component of hydrocephalus and/or ventricular peritoneal shunt dysfunction be completely excluded, however. Correlation with clinical findings is recommended Deep white matter low attenuation, most likely on the basis of chronic ischemic change, stable. Evidence of prior right mastoid surgery, also previously described The CT scanner at [facility] is accredited by the [employer] and the scans are performed using protocols designed to limit radiation exposure to as low as reasonably achievable to attain images of sufficient resolution adequate for diagnostic evaluation.
--- NOTE | 2017-07-23 09:04 | Diagnostic Imaging Report ---
Indications: Low back pain status post fall, probably in the tailbone, 04/30, sharp, nonradiating Technique: Spiral acquisitions obtained through the lumbar spine. Multiplanar reconstructions were generated. No IV contrast utilized. Total dose length product 450 mGycm. CTDIvol(s) 13 mGy. Dose reduction achieved using automated exposure control Comparison: None Findings: There is a mixed osteolytic process] diffusely throughout the spine, pelvis, and visualized portions of the right femur. The largest area of osteolysis is seen in the right sacral body, measures 3 cm in diameter. There is very slight anterior offset of L2 on L3 and of L5 on S1. There is also a thoracolumbar mild scoliotic deformity. The remainder of the vertebral body alignment is normal. The vertebral body heights are preserved. There is questionably a subtle fracture deformity and vertically oriented anterior lucency at the S3-S4 junction. There is also a horizontally oriented lucency through the posterior elements. 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 No right-sided pars defect demonstrated. No definite acute fracture otherwise. There is a left hip prosthesis, which throws off due to artifact which might obscure pathology. 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 No significant disc bulge or protrusion, spinal stenosis, or neural foraminal stenosis. At L1-2, the disc space is preserved. There is bilateral facet degeneration. There is mild circumferential annular bulge, but no significant spinal stenosis or neural foraminal narrowing. At L2-3, there is mild degenerative disc narrowing and bilateral facet degeneration. There is circumferential annular bulge, but no significant spinal stenosis or neural foraminal stenosis. At L3-4, the disc space is preserved. There is bilateral facet degeneration. Circumferential annular bulge results in mild narrowing of the spinal canal. Facet hypertrophy and bulging disc results in mild narrowing of the left neural foramen. At L4-5 the disc space is preserved. There is bilateral facet degeneration. This is worse on the left. There is circumferential annular bulge which does not significantly narrow the spinal canal. The neural foramina are preserved. At L5-S1, the disc space is preserved. No significant disc old or protrusion, spinal stenosis, or neural foraminal stenosis. The surrounding soft tissues are remarkable for the presence of colonic diverticulosis Impression: Suspect nondisplaced sacral fracture at the S3-S4 level, as described No other acute bony trauma Extensive mixed osteolytic/osteosclerotic appearance of the bones, as described. 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 Other possibilities include mixed osteolytic/osteoblastic metastatic disease, myeloma changes, renal osteodystrophy with brown tumors, other metabolic disorders. Correlate with clinical history and findings, correlate with any prior outside examinations that may be available. Degenerative changes, as described Contact between the L3, L4, and L5 spinous processes. Correlate with any clinical history of Bastrup syndrome Unilateral left spondylolysis. Mild L5 on S1 spondylolisthesis, may be related to this or may just be on the basis of facet degeneration Left hip prosthesis Colonic diverticulosis The CT scanner at [facility] is accredited by the [employer] and the scans are performed using protocols designed to limit radiation exposure to as low as reasonably achievable to attain images of sufficient resolution adequate for diagnostic evaluation.
--- NOTE | 2017-07-23 09:27 | Diagnostic Imaging Report ---
Indication: PAIN, status post fall Technique: Spiral acquisitions obtained through the abdomen and pelvis. No oral contrast utilized, per emergency room physician request No IV contrast utilized, per referring physician request.. Multiplanar reconstructions were generated. Total dose length product 499 mGycm. CTDIvol(s) 11 mGy. Dose reduction achieved using automated exposure control Comparison: None Findings: As described on the CT of the lumbar spine, the lumbar and thoracic spine demonstrates extensive mixed osteolytic and osteoblastic changes. This is also seen in the pelvis and sacrum, but not the ribs. Subtle probable sacral fracture is better visualized on lumbar spine CT performed at same time. No other fractures are evident. There is no evidence of significant soft tissue contusion. Lack of IV contrast limits assessment of solid organs. A soft tissue mass is seen adjacent to the lesser curvature of the stomach. This is contiguous with the lesser curvature of the stomach, mostly but not completely from it by a fat plane. This measures 5.7 x 4.9 x 5.6 cm, demonstrates nonspecific attenuation. A smaller nodule is seen immediately posterior to this. The liver demonstrates a 15 mm mass within segment 4B inferiorly. No other definite liver lesions are demonstrated, although evaluation for such is limited in the absence of IV contrast. The gallbladder is nondistended. There is equivocal thickening of the gallbladder wall, probably artifact of under distention. The extrahepatic bile ducts are mildly ectatic, common bile duct measuring up to 9 mm in diameter. No definite downstream obstructive lesion. No gallstones or biliary ductal stones. The pancreas is somewhat atrophic, otherwise unremarkable. The is unremarkable. The left adrenal demonstrates a 12 mm mass. This demonstrates negative Hounsfield unit attenuation. The right adrenal is unremarkable. However, a soft tissue nodule is seen immediately inferior to the right adrenal and posterior to the inferior vena cava. This measures 11 mm in diameter. The kidneys demonstrate bilateral subcentimeter low-attenuation lesions which are too small to characterize. There are probable left renal parapelvic cysts. No retroperitoneal or mesenteric mass or adenopathy. No pelvic mass or adenopathy. There is a left hip prosthesis, streak artifact from which may obscure pathology. There is extensive colonic diverticulosis. No evidence of diverticulitis. The appendix is not definitely visualized, but no findings to suggest acute appendicitis are evident. There is a ventriculoperitoneal shunt catheter, tip within the anterior right lower quadrant peritoneal space. No abnormal fluid is seen around or related to this. Small bowel loops are diffusely fluid-filled, upper limits of normal in caliber. There is a small sliding-type hiatal hernia. The right lung base demonstrates a peripheral irregular 8 mm opacity. Impression: No definite evidence of solid organ trauma. Note, however, evaluation for such is limited in the absence of IV contrast No definite acute bony trauma. Note that sacral fracture suspected on the lumbar spine CT is not well-demonstrated on these images 5.7 x 4.9 x 5.6 cm soft tissue mass adjacent to the lesser curvature of the stomach. Appearance nonspecific, location suggestive of a gastrointestinal stromal tumor, among other possibilities. There may be some adjacent lymphadenopathy 15 mm soft tissue attenuation lesion within the left hepatic lobe. Given the above findings, worrisome for a metastatic deposit. Other possibilities include benign hemangioma, complex cyst, less likely primary neoplasm Mixed osteolytic/osteoblastic appearance to the thoracolumbar spine and pelvis. Suspect Paget's disease as etiology, particularly given lack of involvement of the ribs and right femur beyond the neck. Given the other findings, metastatic disease should also be considered. Other differ -- ential considerations include renal osteodystrophy if there is history of renal failure (not likely given normal size kidneys), other metabolic disorders Nonspecific 11 mm diameter soft tissue nodule inferior to the right adrenal Peripheral irregular right lung base 8 mm opacity. Given the peripheral location, most likely a post inflammatory lesion 12 mm left adrenal lesion. Low attenuation is consistent with benign adenoma Mild gallbladder wall thickening without evidence of stones, most likely artifact of nondistention, acute cholecystitis not completely excludable. Correlate with clinical findings, consider sonography or nuclear medicine scintigraphy for further workup if there is high clinical suspicion Mild extra hepatic biliary ductal ectasia. No definite downstream obstructive lesion so most likely related to patient age. Correlate with liver function tests Ventriculoperitoneal shunt catheter Colonic diverticulosis. No evidence of diverticulitis Diffusely fluid-filled prominent small bowel loops, could indicate enteritis or just be baseline for this patient. Correlate with clinical findings Low-attenuation bilateral renal lesions, too small to characterize, most likely benign simple cortical cysts. No further followup necessary Other findings as noted, including small sliding-type hiatal hernia, mild pancreatic atrophy, left renal parapelvic cysts, left hip. The CT scanner at [facility] is accredited by the [employer] and the scans are performed using protocols designed to limit radiation exposure to as low as reasonably achievable to attain images of sufficient resolution adequate for diagnostic evaluation.
[2017-07-23] MEDS ORDERED: ACETAMINOPHEN-1 EAC1 ORAL (09:40)
[2017-07-23 10:15] VITALS: BP 122/59
== END 2017-07-23 10:17 ==
LOC: EDBD 06:16 → EMR 06:58
DX: S32.19XA Other fracture of sacrum, initial encounter for closed fracture (principal); W01.0XXA Fall on same level from slipping, tripping and stumbling without subsequent striking against object, initial encounter; Y92.192 Bathroom in other specified residential institution as the place of occurrence of the external cause; I10 Essential (primary) hypertension; J44.9 Chronic obstructive pulmonary disease, unspecified; M89.9 Disorder of bone, unspecified; G93.89 Other specified disorders of brain; Z98.2 Presence of cerebrospinal fluid drainage device; K57.30 Diverticulosis of large intestine without perforation or abscess without bleeding; E27.8 Other specified disorders of adrenal gland; Z88.1 Allergy status to other antibiotic agents
CPT/HCPCS: 70450; 72131; 74176; 99284

== ENCOUNTER 2018-01-07 15:20 | Emergency (ER) | payer MEDICARE, MEDICAID ==
[~2018-01-07] VITALS: Ht 157.5 cm; Wt 49.9 kg
[~2018-01-07 15:20] MED LIST changes: +ACETAMINOPHEN-1 EAC1 ORAL; +AMLODIPINE BESYL5 MG ORAL; +MIRALAX17 G2 ORAL; +PRILOSEC OTC20 MG ORAL; +VITAMIN B-12500 MCG ORAL
--- NOTE | 2018-01-07 16:07 | Diagnostic Imaging Report ---
Indications:Pain, trauma, status post fall Technique: 3 views of the left elbow Comparison: None Findings: No acute fractures. No dislocations. The joint spaces are preserved. No effusions. Bones are osteoporotic. Positioning is somewhat limited. Impression: No acute bony trauma
--- NOTE | 2018-01-07 16:09 | Diagnostic Imaging Report ---
Indications: Altered mental status, trauma, status post fall Technique: Spiral acquisitions obtained through the brain. Angled axial and coronal 5 x 5 mm slices were reconstructed. Total dose length product 2875.05 mGycm. CTDI vol(s) 70.38,70.38 mGy. Dose reduction achieved using automated exposure control Comparison: 07/23/2017 Findings: Right transfrontal ventriculoperitoneal shunt is again demonstrated, tip in the body of the left lateral ventricle. The ventricles are mildly dilated despite this, caliber unchanged from the prior study., May been excluded from imaging volume. There is evidence of prior right mastoid surgery. The left mastoids are clear. There is a small amount of low-attenuation surrounding the intracolostomy shaft, unchanged. There is also enlargement of the extra-axial CSF spaces. No acute intracranial hemorrhage or edema. No mass effect nor midline shift. There is periventricular deep white matter low-attenuation, minimal, consistent with chronic deep white matter ischemic changes. Visualized orbits are unremarkable. The left maxillary sinus contains a mucus retention cyst or polyp, not included on the previous study Impression: Negative for acute intracranial bleed or mass effect. Ventriculomegaly, despite presence of a ventriculoperitoneal shunt catheter. Given similarity to previous studies, most likely on the basis of central volume loss, but component of normal pressure hydrocephalus or shunt dysfunction cannot be completely ruled out Minimal periventricular deep white matter low-attenuation, consistent with chronic ischemic change Evidence of prior right mastoid surgery, also previously described The CT scanner at [facility] is accredited by the [employer] and the scans are performed using protocols designed to limit radiation exposure to as low as reasonably achievable to attain images of sufficient resolution adequate for diagnostic evaluation.
[2018-01-07] MEDS ORDERED: Bacitracin Oint UD TOPIC ONE ×2 (16:31→16:45)
[2018-01-07] MEDS ORDERED: BACITRACIN15 GM TOPIC (16:36)
--- NOTE | 2018-01-07 17:49 | Emergency Room Report ---
History of Present Illness General Chief Complaint: Multiple Trauma/Fall Source: Patient Present Illness HPI 87-year-old female presents ED for evaluation. Brought in from senior care facility. Patient had a witnessed fall today. Complaining of left elbow pain. Abrasion noted to the elbow. Unclear whether patient had head injury. Patient has dementia. Patient is DO NOT RESUSCITATE. Patient states pain is throbbing, 8 out of 10, nonradiating. Denies any other injuries. No other aggravating or relieving factors. Denies any other associated symptoms Allergies: Coded Allergies: AZITHROMYCIN (Unverified Allergy, Unknown, 06/19/17) ERYTHROMYCIN BASE (Verified Allergy, Unknown, 10/24/16) COPIED FROM UNCODED SECTION Patient History Past Medical History: HTN, renal disease, other - breast cancer Past Surgical History: none Pertinent Family History: none Social History: Denies: smoking, alcohol use, drug use Last Menstrual Period: Post Now: No Immunizations: UTD Reviewed Nursing Documentation: PMH: Agreed; PSxH: Agreed Nursing Documentation-PMH Hx Cardiac Problems: Yes - Rib fracture, Hyperlipidemia, Anemia, Syncope, Osteopenia Hx Hypertension: Yes Hx COPD: Yes Hx Cancer: Yes - Breast CA Hx Gastrointestinal Problems: Yes - CKD Hx Neurological Problems: No Review of Systems All Other Systems: negative except mentioned in HPI Physical Exam Vital Signs Date Time Temp Pulse Resp B/P (MAP) Pulse Ox O2 Delivery O2 Flow Rate FiO2 01/07/18 15:16 Room Air Sp02 EP Interpretation: reviewed, normal General Appearance: no apparent distress, alert, GCS 15, non-toxic, thin Head: normocephalic, atraumatic Eyes: bilateral eye normal inspection, bilateral eye PERRL ENT: hearing grossly normal, normal pharynx, no angioedema, normal voice Neck: full range of motion, supple/symm/no masses Respiratory: chest non-tender, lungs clear, normal breath sounds, speaking full sentences Cardiovascular #1: regular rate, rhythm, no edema Cardiovascular #2: 2+ carotid (R), 2+ carotid (L), 2+ radial (R), 2+ radial (L) , 2+ dorsalis pedis (R), 2+ dorsalis pedis (L) Gastrointestinal: normal bowel sounds, non tender, soft, non-distended, no guarding, no rebound Rectal: deferred Genitourinary: normal inspection, no CVA tenderness Musculoskeletal: back normal, gait/station normal, normal range of motion, tender - L elbow Neurologic: alert, oriented x3, responsive, motor strength/tone normal, sensory intact, speech normal Psychiatric: judgement/insight normal, memory normal, mood/affect normal, no suicidal/homicidal ideation Reflexes: 3+ bicep (R), 3+ bicep (L), 3+ tricep (R), 3+ tricep (L), 3+ knee (R) , 3+ knee (L) Skin: normal color, warm/dry, well hydrated, abrasions - L elbow Lymphatic: no adenopathy Medical Decision Making Diagnostic Impression: Primary Impression: Abrasion of elbow Qualified Codes: S50.312A - Abrasion of left elbow, initial encounter Additional Impression: Fall Qualified Codes: W19.XXXA - Unspecified fall, initial encounter ER Course Hospital Course 87 yo F presents to ED c/o elbow abrasion, fall Differential diagnoses include: Fracture, dislocation, sprain, contusion Clinical course Patient placed on stretcher. After initial history and physical, I ordered xrays of L elbow, CT head Xrays read shows no acute fracture/dislocation. CT head negative abrasions cleaned. dressing applied. spoke to PMD Dr Nunez and he agrees patient can be safely discharged Diagnosis -abrasion of elbow, fall Stable and discharged to SNF with Rx bacitracin. woundcare instructions given. Followup with PMD. Return to ED if symptoms recur or worsen Other X-Ray Diagnostic Results Other X-Ray Diagnostic Results : X-Ray ordered: L elbow # of Views/Limited Vs Complete: 3 View Indication: Pain EP Interpretation: Yes Interpretation: no dislocation, no soft tissue swelling, no fractures Impression: No acute disease Electronically Signed by: Electronically signed by Mickey Sidhu MD CT/MRI/US Diagnostic Results CT/MRI/US Diagnostic Results : Imaging Test Ordered: CT Head Impression no acute process Last Vital Signs Date Time Temp Pulse Resp B/P (MAP) Pulse Ox O2 Delivery O2 Flow Rate FiO2 01/07/18 15:16 Room Air Status: improved Disposition: XFER SNF Condition: Stable Scripts Bacitracin (Bacitracin) 28.4 Gm Oint...g. 1 APPLIC TOPIC THREE TIMES A DAY, #28.4 GM Prov: Mickey Sidhu MD 01/07/18 Patient Instructions: Abrasion, [id number] Mickey Sidhu MD Jan 07, 2018 17:49
[2018-01-07 20:29] VITALS: BP 120/73
[2018-01-07 20:31] VITALS: BP 120/73
[2018-01-07] MEDS ORDERED: Norco 5mg/325mg tab ORAL ONE (20:45)
== END 2018-01-07 20:43 ==
LOC: EDBD 15:20 → EMR 15:50
DX: S50.312A Abrasion of left elbow, initial encounter (principal); W19.XXXA Unspecified fall, initial encounter; Y92.129 Unspecified place in nursing home as the place of occurrence of the external cause; R41.82 Altered mental status, unspecified; J44.9 Chronic obstructive pulmonary disease, unspecified; I12.9 Hypertensive chronic kidney disease with stage 1 through stage 4 chronic kidney disease, or unspecified chronic kidney disease; N18.9 Chronic kidney disease, unspecified; Z85.3 Personal history of malignant neoplasm of breast; E78.5 Hyperlipidemia, unspecified
CPT/HCPCS: 70450; 99284